=== PATIENT | female | born 1945 | race Caucasian/White ===

== ENCOUNTER 2023-12-22 16:23 | Emergency (ER) | payer MEDICARE, SELFPAY ==
[2023-12-22 16:24] VITALS: BP 147/52; PULSE 60; RESP 16; TEMP 36.9; O2SAT 98; BMI 27.4
--- NOTE | 2023-12-22 16:31 | ED_ITS ---
HPI - Weakness 2 General: Chief complaint: Weakness Stated complaint: Low blood sugar Time Seen by Provider: 12/22/23 16:26 Source: patient and EMS Mode of arrival: EMS Limitations: no limitations History of Present Illness: 78-year-old female states she has a hist ory of diabetes states she is having some generalized weakness roughly 2 hours ago checked her blood sugar and it was 56 states she had eaten some and is now up in the 160s but she called the ambulance because she is concerned she is not on any oral antihyperglycemic's denies any pain anywhere denies any fever she does feel improved currently Associated symptoms: Denies chest pain, chills, dysuria, fever(s), headache(s), nausea or vomiting Review of Systems 2 Const: Reports: fatigue and malaise; Denies: fever(s), chills, body aches or change in appetite ENMT: Denies: throat pain or dental pain Card: Denies: chest pain Resp: Denies: dyspnea GI: Denies: abdominal pain, nausea, vomiting or diarrhea : Denies: dysuria Musc: Denies: neck pain or back pain Skin/Breast: Denies: rash Neuro: Denies: headache(s) Physical Exam 2 Const: COMMON NORMALS: no acute distress, patient oriented x3 and healthy appearing HENMT: COMMON NORMALS: normocephalic and atraumatic HEAD & SCALP: n ormocephalic and atraumatic Eye: COMMON NORMALS: conjunctivae normal CONJUNCTIVA: Yes conjunctivae normal Neck/C-Spine: COMMON NORMALS: full ROM and supple Chest: COMMONS NORMALS: normal inspection of the chest Resp: COMMON NORMALS: normal respiratory effort, No retractions, No use of accessory muscles and clear to auscultation bilaterally AUSCULTATION: clear to auscultation bilaterally Cardio: COMMON NORMALS: regular rate, regular rhythm and No murmurs present (Cardio) RATE: regular rate RHYTHM: regular rhythm Extremity: COMMON NORMALS: normal to inspection and full ROM Neuro: COMMON NORMALS: patient oriented x3, moves all extremities and no focal motor deficits Psych: COMMON NORMALS: mental status grossly normal, Normal thought process present and cooperative THOUGHT PROCESS: Normal thought process present Skin: COMMON NORMALS: no rashes or lesions noted and no wounds GENERAL SKIN EXAM: no rashes or lesions noted Course 2 Vital Signs: Vital signs: Vital Signs Temperature 98.5 F 12/22/23 16:24 Pulse Rate 60 12/22/23 16:24 Respiratory Rate 16 12/22/23 16:24 Blood Pressure 147/52 12/22/23 16:24 Pulse Oximetry 98 12/22/23 16:24 Oxygen Delivery Me thod Room Air 12/22/23 16:24 MDM - Weakness Medical Decision Making Patient presents with hyperglycemia her blood sugar here has been normal did observe her 2 hours her glucose currently is 161 she is not on any oral glipizide's she is stable for discharge follow-up with PCP return if worsening Medical Records I reviewed the patient's medical records. Lab Data I reviewed the patient's lab results. 12/22/23 16:39 12/22/23 16:39 Laboratory Results WBC 7.81 10^3/uL (3.29-11.43) 12/22/23 16:39 RBC 3.79 10^6/uL (3.85-5.65) L 12/22/23 16:39 Hgb 10.50 g/dL (11.27-16.99) L 12/22/23 16:39 Hct 34.1 % (36-47) L 12/22/23 16:39 MCV 90.0 fl (85-98) 12/22/23 16:39 MCH 27.7 pg (27-33) 12/22/23 16:39 MCHC 30.8 g/dL (30-55) 12/22/23 16:39 RDW 14.6 % (12.1-15.1) 12/22/23 16:39 Plt Count 223 10^3/cmm (157-399) 12/22/23 16:39 MPV 9.9 fL (7.4-10.4) 12/22/23 16:39 Neut % (Auto) 57.0 % 12/22/23 16:39 Lymph % (Auto) 31.6 % 12/22/23 16:39 [place] % (Auto) 8.2 % 12/22/23 16:39 Eos % (Auto) 2.0 % 12/22/23 16:39 Baso % (Auto) 0.8 % 12/22/23 16:39 Neut # (Auto) 4.45 10^3/uL (1.8-7.7) 12/22/23 16:39 Lymph # (Auto) 2.5 10^3/uL (0.8-4.8) 12/22/23 16:39 [place] # (Auto) 0.6 10^3/uL (0.2-0.9) 12/22/23 16:39 Eos # (Auto) 0.2 10^3/uL (0.0-0.8) 12/22/23 16:39 Baso # (Auto) 0.1 10^3/uL (0.0-0.1) 12/22/23 16:39 Nucleated RBC % (auto) 0 % 12/22/23 16:39 Nucleated RBCs # 0.0 /100WBC 12/22/23 16:39 Sodium 143 mmol/L (136-145) 12/22/23 16:39 Potassium 4.3 mmol/L (3.5-5.1) 12/22/23 16:39 Chloride 107 mmol/L (98-107) 12/22/23 16:39 Carbon Dioxide 26 mmol/L (22-29) 12/22/23 16:39 Anion Gap 14.3 (5-19) 12/22/23 16:39 BUN 17 mg/dL (8-23) 12/22/23 16:39 Creatinine 0.7 mg/dL (0.5-0.9) 12/22/23 16:39 GFR Calculation Not Reportable 12/22/23 16:39 Glucose 148 mg/dL (65-115) H 12/22/23 16:39 POC Glucose 161 mg/dL (70-110) H 12/22/23 18:31 Calculated Osmolality 300 mOsm/kg (285-295) H 12/22/23 16:39 Calcium 8.4 mg/dL (8.5-10.5) L 12/22/23 16:39 Total Bilirubin 0.2 mg/dL (0.15-1.2) 12/22/23 16:39 AST 15 U/L (0-32) 12/22/23 16:39 ALT 8 U/L (0-33) 12/22/23 16:39 Alkaline Phosphatase 61 U/L (35-105) 12/22/23 16:39 Total Protein 6.5 g/dL (6.6-8.7) L 12/22/23 16:39 Albumin 3.6 g/dL (3.5-5.2) 12/22/23 16:39 Globulin 2.9 g/dL (1.3-4.6) 12/22/23 16:39 Urine Color Yellow (Yellow) 12/22/23 17:31 Urine Appearance Clear (CLEAR) 12/22/23 17:31 Urine pH 5.5 (5-7) 12/22/23 17:31 Ur Specific [place] 1.016 (1.005-1.030) 12/22/23 17:31 Urine Protein Negative (Negative) 12/22/23 17:31 Urine Glucose (UA) Negative (Normal) 12/22/23 17:31 Urine Ketones Negative (Negative) 12/22/23 17:31 Urine Blood Negative (Negative) 12/22/23 17:31 Urine Nitrate Negative (Negative) 12/22/23 17:31 Urine Bilirubin Negative (Negative) 12/22/23 17:31 Urine Urobilinogen 1.0 mg/dL (Negative) 12/22/23 17:31 Ur Leukocyte Esterase Negative (Negative) 12/22/23 17:31 Amorphous Sediment Not Reportable 12/22/23 17:31 No radiology studies performed this visit EKG Data EKG 1: I personally reviewed and interpreted this EKG as follows: EKG interpretation date: 12/22/23 EKG interpretation time: 16:35 Interpretation: sinus jori hr [address] elevation qrs 113 qtc 459 Discharge Plan Discharge Patient Disposition: Home Clinical Impression: Hypoglycemia Condition: Stable Discharge Orders: Discharge ED (Routine); Ordered 12/22/23 Ordered By: Marlee Mendez Referrals: Cal Adam MD [Family Provider] - Discharge Diet: Advance as tolerated Discharge Activity: Resume usual activity Patient Instructions: Hypoglycemia in a Person with Diabetes (ED) Coding Level of Care Code ED Studio Operations Manager for Allison Najera
[2023-12-22 16:37] LABS: Glucose Point of Care 165 mg/dL (70-110)
[2023-12-22 16:57] LABS: Basophils # 0.1 10^3/uL (0.0-0.1); Basophils % 0.8 %; Eosinophils # 0.2 10^3/uL (0.0-0.8); Hematocrit 34.1 % (36-47); Lymphocytes # 2.5 10^3/uL (0.8-4.8); Lymphocytes % 31.6 %; Mean Corpuscular HGB Conc 30.8 g/dL (30-55); Mean Corpuscular Hemoglobin 27.7 pg (27-33); Mean Platelet Volume 9.9 fL (7.4-10.4); Monocytes # 0.6 10^3/uL (0.2-0.9); Monocytes % 8.2 %; Neutrophils # 4.45 10^3/uL (1.8-7.7); Nucleated Red Blood Cells % 0 %; Platelet Count 223 10^3/cmm (157-399); Red Blood Count 3.79 10^6/uL (3.85-5.65); Red Cell Distribution Width 14.6 % (12.1-15.1); White Blood Count 7.81 10^3/uL (3.29-11.43)
[2023-12-22 17:15] LABS: Alanine Aminotransferase 8 U/L (0-33); Albumin Level 3.6 g/dL (3.5-5.2); Alkaline Phosphatase 61 U/L (35-105); Anion Gap 14.3 (5-19); Aspartate Amino Transferase 15 U/L (0-32); Blood Urea Nitrogen 17 mg/dL (8-23); Calcium 8.4 mg/dL (8.5-10.5); Carbon Dioxide 26 mmol/L (22-29); Chloride 107 mmol/L (98-107); Creatinine Clr Calc Pharmacy 58.4139; Globulin 2.9 g/dL (1.3-4.6); Glucose 148 mg/dL (65-115); Osmolality Calculated 300 mOsm/kg (285-295); Potassium 4.3 mmol/L (3.5-5.1); Sodium 143 mmol/L (136-145); Total Bilirubin 0.2 mg/dL (0.15-1.2); Total Protein 6.5 g/dL (6.6-8.7)
[2023-12-22 17:39] LABS: Glucose Point of Care 115 mg/dL (70-110)
--- NOTE | 2023-12-22 17:44 | ECG_ITS ---
[facility] Test Date: 2023-12-22 Pat Name: Rosalina Craig Department: Room: Gender: Female Wood Floor Layer: : 1945 Requested By: Marlee Mendez Order Number: [id number] Raghav MD: Seven Barkley M.D. Measurements Intervals [place] Rate: 52 P: 74 CT: 148 QRS: 93 QRSD: 113 T: 83 QT: 480 QTc: 447 Interpretive Statements SINUS BRADYCARDIA BORDERLINE RIGHT AXIS DEVIATION [QRS AXIS > 90] INCOMPLETE RIGHT BUNDLE BRANCH BLOCK [90+ ms QRS DURATION, TERMINAL R IN V1/V2, 40+ ms S IN I/aVL/V4/V5/V6] No previous ECG available for comparison Electronically Signed On 12-23-2023 9:06:53 CDT by Seven Barkley M.D. [id number] f
[2023-12-22 17:45] LABS: Charge for UA Resulting for Rev
[2023-12-22 18:01] LABS: Bilirubin Urine Negative (Negative); Blood Urine Negative (Negative); Glucose Urine UA Negative (Normal); Ketones Urine Negative (Negative); Leukocyte Esterase Urine Negative (Negative); Nitrate Urine Negative (Negative); Protein Urine Negative (Negative); Specific Gravity, Urine 1.016 (1.005-1.030); Urine Appearance Clear (CLEAR); Urine Color Yellow (Yellow); pH Urine 5.5 (5-7)
[2023-12-22 18:34] LABS: Glucose Point of Care 161 mg/dL (70-110)
--- NOTE | 2023-12-22 19:25 | PC.NURSE ---
This nurse took over cares from Jennifer MADDEN at 1900.
== END 2023-12-22 19:39 | disposition home or self-care (01) ==
PROVIDERS: Emergency Provider Emergency Medicine; Family Provider Family Medicine
DX: E11.649 Type 2 diabetes mellitus with hypoglycemia without coma (principal); R00.1 Bradycardia, unspecified
CPT/HCPCS: 36415; 36416; 80053; 81003; 81015; 82962; 85025; 93005; 99284

== ENCOUNTER 2024-01-19 17:10 | Emergency (ER) | payer MEDICARE, SELFPAY ==
[2024-01-19 17:11] VITALS: BP 193/80; PULSE 77; RESP 16; TEMP 37; O2SAT 97; BMI 28.3
--- NOTE | 2024-01-19 17:16 | XRR_ITS ---
PROCEDURE INFORMATION: Exam: XR Right Forearm Exam date and time: 01/19/2024 5:19 PM Age: 78 years old Clinical indication: Injury or trauma; Fall; Other: Pain; Additional info: Injury, fall and hit right forearm on door today with pain TECHNIQUE: Imaging protocol: Radiologic exam of the right forearm. Views: 2 views. COMPARISON: No relevant prior studies available. FINDINGS: Bones/joints: No fracture or other significant osseous abnormality. No evidence arthropathy. Soft tissues: Mild dorsal soft tissue swelling. XR/XR forearm RT 2V [id number] IMPRESSION: No acute fracture. Mild dorsal forearm soft tissue swelling.
--- NOTE | 2024-01-19 17:22 | ED_ITS ---
HPI - Wound/Laceration General: Chief Complaint: Wound/Laceration Stated Complaint: Lac RT Arm Time Seen by Provider: 01/19/24 17:11 Source: patient Mode of arrival: ambulatory Limitations: no limitations History of Present Illness: 78-year-old female states that she had a right forearm on the refrigerator door today. Patient states that she has a skin tear to her right forearm also pain she states she also has not had updated on her tetanus. She rates her pain a 3 out of 10 denies any other injuries. Associated symptoms: Denies chills, fever(s), nausea or vomiting Related Data Allergies Allergy/AdvReac Type Severity Reaction Status Date / Time No Known Allergies Allergy Verified 12/22/23 16:28 Review of Systems Const: Denies: fever(s), chills, body aches or change in appetite ENMT: Denies: throat pain or dental pain Card: Denies: chest pain Resp: Denies: dyspnea GI: Denies: abdominal pain, nausea, vomiting or diarrhea Musc: Reports: extremity pain; Denies: neck pain or back pain Skin/Breast: Denies: rash Neuro: Denies: headache(s) Physical Exam Const: COMMON NORMALS: no acute distress, patient oriented x3 and healthy appearing HENMT: COMMON NORMALS: normocephalic and atraumatic HEAD & SCALP: normocephalic and atraumatic Neck/C-Spine: COMMON NORMALS: full ROM and supple Chest: COMMONS NORMALS: normal inspection of the chest Resp: COMMON NORMALS: normal respiratory effort Cardio: COMMON NORMALS: regular rate RATE: regular rate GI: COMMON NORMALS: non-tender Extremity: COMMON NORMALS: full ROM NARRATIVE EXTREMITY EXAM: Skin tear noted to right forearm no large lacerations Neuro: COMMON NORMALS: patient oriented x3, moves all extremities and no focal motor deficits Psych: COMMON NORMALS: mental status grossly normal, Normal thought process present and cooperative THOUGHT PROCESS: Normal thought process present Skin: COMMON NORMALS: no rashes or lesions noted and no wounds GENERAL SKIN EXAM: no rashes or lesions noted Course Vital Signs: Vital signs: Vital Signs Temperature 98.6 F 01/19/24 17:11 Pulse Rate 77 01/19/24 17:11 Respiratory Rate 16 01/19/24 17:11 Blood Pressure 193/80 01/19/24 17:11 Pulse Oximetry 97 01/19/24 17:11 Oxygen Delivery Me thod Room Air 01/19/24 17:11 MDM - Wound/Laceration Medical Decision Making Patient presents here with skin tear to right arm x-ray showed no fracture she has no wounds to suture did update her tetanus she is stable for discharge Medical Records I reviewed the patient's medical records. XR interpretation done by ED provider, pending radiology final review ED provider radiology interpretation(s): . X-ray right forearm no acute abnormalities Discharge Plan Discharge Patient Disposition: Home Clinical Impression: Skin tear of right upper extremity Condition: Stable Discharge Orders: Discharge ED (Routine); Ordered 01/19/24 Ordered By: Marlee Mendez Referrals: Cal Adam MD [Family Provider] - Discharge Diet: Advance as tolerated Discharge Activity: Resume usual activity Patient Instructions: Skin Tear (ED) Coding Level of Care Code ED Balloon Dipper for Allison Najera
[2024-01-19] MEDS: tetanus-dipt-pertussis 0.5 mL SDV IM (17:48)
== END 2024-01-19 18:09 | disposition home or self-care (01) ==
PROVIDERS: Emergency Provider Emergency Medicine; Family Provider Family Medicine; PCP Internal Medicine
DX: S51.811A Laceration without foreign body of right forearm, initial encounter (principal); W22.8XXA Striking against or struck by other objects, initial encounter; Z23 Encounter for immunization
CPT/HCPCS: 73090; 90471; 90715; 99283

== ENCOUNTER 2024-12-16 18:19 | Observation (INO) | payer MEDICARE, SELFPAY ==
--- OUTSIDE RECORDS SUMMARY | 2022-01-01 06:30 | XMS_ITS | Continuity of Care Document ---
Author Organization [facility] Address [address] [place] [address] [place] [phone] Phone Care Team Providers Care Asset Analyst Name Role Phone Bee David MCNEIL Unavailable Unavailable Allergies, Adverse Reactions, Alerts Substance Reaction Status Criticality No Known Allergies Active No Inform ation Medications Medication Instructions Dosage Effective Dates (start - stop) Status Comments celecoxib 200 mg capsule TAKE ONE CAPSULE BY MOUTH ONCE DAILY WITH FOOD FOR PAIN AND INFLAMMATION - Active trazodone 150 mg tablet TAKE 2 TABLETS ( 300MG) BY MOUTH AT BEDTIME FOR SLEEP - Active potassium chloride ER 10 mEq tablet,extended release TAKE ONE TABLET BY MOUTH ONCE DAILY NEEDED - Active Januvia 100 mg tablet taking as directed - Active Tresiba FlexTouch U-200 insulin 200 unit/mL (3 mL) subcutaneous pen INJECT 76 UNITS ONCE DAILY SUBCUTANEOUSLY FOR BLOOD SUGAR - Active meclizine 25 mg tablet TAKE ONE TABLET B Y MOUTH THREE TIMES A DAY NEEDED FOR DIZZINESS - Active fluorometholone 0.1 % eye drops,suspension taking as directed - Active gabapentin 800 mg tablet TAKE 2 TABLETS BY MOUTH EVERY MORNING, ONE TABLET BY MOUTH AT NOON, AND 2 TABLETS BY MOUTH EVERY EVENING, FOR NERVE PAIN. MAY CAUSE DROWSINESS. - Active Trintellix 20 mg tablet taking as directed 2021 - Active donepezil 10 mg tablet taking as directed - Active isosorbide mononitrate ER 30 mg tablet,extended release 24 hr taking as directed - Active cyclobenzaprine 5 mg tablet taking as directed - Active tramadol 50 mg tablet TAKE ONE TABLET BY MOUTH EVERY 6 HOURS NEEDED FOR PAIN. MAY CAUSE DROWSINESS. - Active furosemide 40 mg tablet TAKE ONE TABLET BY MOUTH ONCE DAILY . - Active enalapril maleate 5 mg tablet taking as directed - Active Combivent Respimat 20 mcg-100 mcg/actuation solution for inhalation taking as directed - Active triamcinolone acetonide 0.5 % topical ointment taking as directed - Active hydrocodone 7.5 mg-acetaminophen 325 mg tablet TAKE ONE TABLET BY MOUTH EVERY 6 HOURS NEEDED FOR PAIN. TAKE WITH FOOD. MAY CAUSE DROWSINESS. - Active atorvastatin 40 mg tablet TAKE ONE TABLET BY MOUTH ONCE DAILY FOR CHOLESTEROL - Active estradiol 1 mg tablet TAKE ONE TABLET BY MOUTH ONCE DAILY FOR HORMONES - Active Myrbetriq 25 mg tablet,extended release taking as directed - Active spironolactone 25 mg tablet taking as directed - Active cyclobenzaprine 10 mg tablet TAKE ONE TABLET BY MOUTH EACH NIGHT AT BEDTIME - Active etodolac 400 mg tablet taking as directed - Active Prolate 5 mg-300 mg tablet taking as directed - Active promethazine 25 mg tablet TAKE 1 TABLET EVERY 6 HOURS NEEDED FOR NAUSEA. MAY CAUSE DROWSINESS. - Active hydrocodone 10 mg-acetaminophen 325 mg tablet TAKE ONE TABLET BY MOUTH EVERY 4 HOURS NEEDED FOR PAIN. MAY CAUSE DROWSINESS. - Active ondansetron HCl 8 mg tablet TAKE ONE TABLET BY MOUTH EVERY 8 HOURS NEEDED FOR NAUSEA - Active hydrocodone 5 mg-acetaminophen 325 mg tablet TAKE 1 TABLET BY MOUTH EVERY 8-10 HOURS - Active Nalocet 2.5 mg-300 mg tablet taking as directed - Active trazodone 50 mg tablet TAKE 2 TABLETS AT BEDTIME - Active Procedures Procedure Date OFFICE/OUTPATIENT VISIT, NEW AFTER CATARACT LASER SURGERY Advance Directives Directive Yes / No Effective Date File Name No Information Encounters Encounter Description Practice Location Reason(s) For Visit Diagnoses Date Provider Providers Copied on Encounter OFFICE/OUTPAT IENT VISIT, NEW [facility], [address] [place] [address], [id number], tel: [phone] [facility] CLERICAL RECEPTIONIST YAG Eval (chief complaint) PCO (posterior capsular opacification), leftPseudophakia of both eyesMeibomian gland dysfunction (MGD) of both eyesHistory of radial keratotomy 2 Ranjana Hernandez. [address] [place] [address], [place], [address], [place]. tel: [phone] Referring Provider: Guru Juarez, [address], [place], [address] . tel:[phone] [facility], [address] [place] [address] [place] [address], [id number], tel: [phone] [facility] No Information 2 Ranjana Hernandez. [address] [place] [address], [place], [address], [place]. tel: [phone] Referring Provider: Guru Juarez, [address], [place], [address] . tel:[phone] Family History Family Member Type Diagnosis Age At Onset No Information Payers Payer name Insurance type Covered constitution party ID Authoriza tion(s) Medicare Part B [facility] [id number] Medicaid [facility] [id number] Social History Type Description Quantity Date Captured Comments Alcohol Use Details No Caffeine Use Details Unknown Tobacco Use Status Current non-smoker Smoking Status Never smoker Non-Smoking Tobacco Use Details : No Details Available : No Details Available Sex Female Chief Complaint And Reason For Visit From encounter dated '01/01/2022 11:30'. CLERICAL RECEPTIONIST YAG Eval (chief complaint). Description: Pt was referred by Dr. Lama. Pt c/o decrease in Va andglare. Last BG 126Last A1C ? Reason For Referral Reason For Referral No Information History Of Present Illness Encounter Date Complaint History Of Prese nt Illness CLERICAL RECEPTIONIST YAG Eval Pt was referred by Dr. Lama. Pt c/o decrease in Va and glare. Last BG 126Last A1C ? Functional Status Date Functional Assessmen t No Information Instructions Date Instruction Additional Infor mation Follow up as sched w/Dr. Lama R elated to PCO (posterior capsular opacification), left Impression/Plan - 1. Recom warm compresses, lightly massage and scrub lids Related to Meibomian gland dysfunction (MGD) of both eyes Follow up - Follow u p as sched w/Dr. Lama Related to PCO (posterior capsular opacification), left Impression/Plan - 1. VISUALLY SIGNIFICANT. RISKS, BENEFITS, ALTERNATIVES DISCUSSED WITH PATIENT. PT WISHES TO PROCEED W/YAG LASER OS today in clinic. Related to PCO (posterior capsular opacification), left Impression/Plan - 1. 8 cut RK Re lated to History of radial keratotomy Assessments Type Assessment Date assessment PCO (posterior capsular opacific ation), left assessment Pseudophakia of both eyes assessment Meibomian gland dysfunction (MGD ) of both eyes assessment History of radial keratotomy Dec impression Meibomian gland dysfunction (MGD ) of both eyes: H02.883 impression PCO (posterior capsular opacific ation), left: H26.492 impression History of radial keratotomy: Z9 8.890 Patient Care Teams Name Effective Dates (start - stop) Status Members No Information
--- OUTSIDE RECORDS SUMMARY | 2022-01-01 06:30 | XMS_ITS | Continuity of Care Document ---
Author Organization [facility] Address [address] [place] [address] [place] [phone] Phone Care Team Providers Care Chemical Packager Name Role Phone Bee David MCNEIL Unavailable [...] Copied on Encounter OFFICE/OUTPAT IENT VISIT, NEW [facility], [address] [place] [address], [id number], tel: [phone] [facility] PASTRY COOK YAG Eval (chief complaint) PCO (posterior capsular opacification), leftPseudophakia of both eyesMeibomian gland dysfunction (MGD) of both eyesHistory of radial keratotomy 2 Ranjana Hernandez. [address] [place] [address], [place], [address], [place]. tel: [phone] Referring Provider: Guru Juarez, [address], [place], [address] . tel:[phone] [facility], [address] [place] [address] [place] [address], [id number], tel: [phone] [facility] No Information 2 Ranjana Hernandez. [address] [place] [address], [place], [address], [place]. tel: [phone] Referring Provider: Guru Juarez, [address], [place], [address] . tel:[phone] Family History Family Member Type Diagnosis Age At Onset No Information Payers Payer name Insurance type Covered libertarian ID Authoriza tion(s) Medicare Part B [facility] [id number] Medicaid [facility] [id number] Social History Type Description Quantity Date Captured Comments Alcohol Use Details No Caffeine Use Details Unknown Tobacco Use Status Current non-smoker Smoking Status Never smoker Non-Smoking Tobacco Use Details : No Details Available : No Details Available Sex Female Chief Complaint And Reason For Visit From encounter dated '01/01/2022 11:30'. PASTRY COOK YAG Eval (chief complaint). Description: Pt was referred by Dr. Lama. Pt c/o decrease in Va andglare. Last BG 126Last A1C ? Reason For Referral Reason For Referral No Information History Of Present Illness Encounter Date Complaint History Of Prese nt Illness PASTRY COOK YAG Eval Pt was referred by Dr. [...]
--- OUTSIDE RECORDS SUMMARY | 2024-12-05 03:39 | XMS_ITS ---
Author Organization [facility] Address [address] [place] [address] Care Team Providers Care Mathematician Research Name Role Phone Jase Ward Primary Care Provider REASON FOR VISIT tooth pain-antibiotics Encounters Encounter Location Date Provider Diagnosis [facility] [address] [facility] [address] [place] [address] 12/05/2024 Jase Ward Plan Of Treatment Next Appt Details Provider Name:Jase Ward, 01/03/2025 01:00:00 PM, [address] [facility] [address], [place], [address], Progress Notes * Rosalina CRAIG ADOB: 8 (79 yo F)Acc No.[id number]:12/05/2024 Progress Notes Patient: Rosalina Sheriff Provider: Shruthi Ward MD :1945 A ge:79 Y S ex:Female Date:12/05/2024 [address], [place], [id number] Subjective: * Chief Complaints: * T ooth pain-antibiotics Care Plan Details* * Electronic signature of Sharmila Ward MD on 12/17/2024 at 08:00 AM CDT Sign off status: Pending * Provider: Shruthi Ward MD Date: 12/05/2024 Generated for Eduardo rivas/Kimo/eTransmitting on: 0 12/17/2024 08:00 AM CDT
--- OUTSIDE RECORDS SUMMARY | 2024-12-05 03:39 | XMS_ITS ---
Author Organization [facility] Address [address] [place] [address] Care Team Providers Care It Senior Software Engineer Java Name Role Phone Jase Ward Primary Care Provider REASON FOR VISIT tooth pain-antibiotics Encounters Encounter Location Date Provider Diagnosis [facility] [address] [facility] [address] [place] [address] 12/05/2024 Jase Ward Plan Of Treatment Next Appt Details Provider Name:Jase Ward, 01/03/2025 01:00:00 PM, [address] [facility] [address], [place], [address], Progress Notes * Rosalina CRAIG ADOB: 8 (79 yo F)Acc No.[id number]:12/05/2024 Progress Notes Patient: Rosalina Sheriff Provider: Shruthi Ward MD :1945 A ge:79 Y S ex:Female Date:12/05/2024 Address:[address], [place], [id number] Subjective: * Chief Complaints: * T ooth pain-antibiotics Care Plan Details* * Electronic signature of Sharmila Ward MD on 12/16/2024 at 06:34 PM CDT Sign off status: Pending * Provider: Shruthi Ward MD Date: 12/05/2024 Generated for Eduardo rivas/Faxing/eTransmitting on: 0 12/16/2024 06:34 PM CDT
--- OUTSIDE RECORDS SUMMARY | 2024-12-05 09:00 | XMS_ITS ---
Author Organization [facility] Address [address] [facility] [place] [address] Care Team Providers Care Business Development Associate Name Role Phone Jase Ward Primary Care Provider REASON FOR VISIT Tooth Pain- antibiotics Encounters Encounter Location Date Provider Diagnosis [facility] [address] [facility] [address] [place] [address] 12/05/2024 Jase Ward Plan Of Treatment Next Appt Details Provider Name:Jase Ward, 01/03/2025 01:00:00 PM, [address] [facility] [address], [place], [address], Progress Notes * Rosalina CRAIG ADOB: 8 (79 yo F)Acc No.[id number]:12/05/2024 Progress Notes Patient: Rosalina Sheriff Provider: Shruthi Ward MD :1945 A ge:79 Y S ex:Female Date:12/05/2024 Address:[address], [place], [id number] Subjective: * Chief Complaints: * T ooth Pain- antibiotics Billing Information: * Procedure Codes: Care Plan Details* * Electronic signature of Sharmila Ward MD on 12/16/2024 at 06:35 PM CDT Sign off status: Pending * Provider: Shruthi Ward MD Date: 0 12/05/2024 Generated for Eduardo rivas/Kimo/Bisi on: 0 12/16/2024 06:35 PM CDT
--- OUTSIDE RECORDS SUMMARY | 2024-12-05 09:00 | XMS_ITS ---
Author Organization [facility] Address [address] [place] [address] Care Team Providers Care Letter Carrier Name Role Phone Jase Ward Primary Care Provider [phone] REASON FOR VISIT Tooth Pain- antibiotics Encounters Encounter Location Date Provider Diagnosis [facility] [address] [facility] [address] [place] [address] 12/05/2024 Jase Ward Plan Of Treatment Next Appt Details Provider Name:Jase Wrad, 01/03/2025 01:00:00 PM, [address] [facility] [address], [place], [address], Progress Notes * Rosalina CRAIG ADOB: 8 (79 yo F)Acc No.[id number]:12/05/2024 Progress Notes Patient: Rosalina Sheriff Provider: Shruthi Ward MD :1945 A ge:79 Y S ex:Female Date:12/05/2024 Address:[address], [place], [id number] Subjective: * Chief Complaints: * T ooth Pain- antibiotics Billing Information: * Procedure Codes: Care Plan Details* * Electronic signature of Sharmila Ward MD on 12/17/2024 at 08:01 AM CDT Sign off status: Pending * Provider: Shruthi Ward MD Date: 0 12/05/2024 Generated for Eduardo rivas/Kimo/Bisi on: 0 12/17/2024 08:01 AM CDT
[2024-12-16] VITALS (9 sets, daily range): BP systolic 104–136; BP diastolic 38–68; PULSE 56–68; RESP 12–18; TEMP 36.5–36.7; O2SAT 90–99; BMI 26.9
--- NOTE | 2024-12-16 18:34 | XRR_ITS ---
PROCEDURE INFORMATION: Exam: XR Chest Exam date and time: 12/16/2024 6:42 PM Age: 79 years old Clinical indication: Pain; Chest pressure; Prior surgery; Surgery date: 6+ months; Surgery type: Cabg; Additional info: Cp TECHNIQUE: Imaging protocol: Radiologic exam of the chest. Views: 1 view. COMPARISON: No relevant prior studies available. FINDINGS: Lungs: Unremarkable. No consolidation. Pleural spaces: Unremarkable. No pleural effusion. No pneumothorax. Heart/Mediastinum: Mild cardiomegaly. Bones/joints: Changes of prior sternotomy. Left shoulder arthroplasty. XR/XR chest 1V portable [id number] IMPRESSION: No acute cardiopulmonary findings.
--- OUTSIDE RECORDS SUMMARY | 2024-12-16 18:35 | XMS_ITS | Patient Health Record ---
Author Organization [facility] Address [address] [place] [address] Care Team Providers Care Checkman Name Role Phone Jase Ward Primary Care Provider Migration, Provider Unavailable Unavailable Allergies Allergen (clinical drug ingredient) Drug/Non Drug Allergy documented on EMR Reaction Allergy Type Onset Date Status codeine Codeine HCl (uncoded) Unknown Allergy Active meperidine demerol Unknown Drug Allergy Active codeine Codeine , Drug Allergy Active Results Component Value Reference Range Flag Notes Vitamin B12 (B) 69870 Reviewed date:08/03/2024 09:35:33 AM Interpretation: Performing Lab: Notes/Report: TbfpatcU19 438 211-911 pg/mL Knee Min 3V Right-83105 Reviewed date:01/31/2024 06:11:54 AM Interpretation: Performing Lab: Notes/Report: See Below For Report Knee Min 3V Right Read See Below For Report Knee Min 3V Left-77506 Reviewed date:01/31/2024 06:11:54 AM Interpretation: Performing Lab: Notes/Report: See Below For Report Knee Min 3V Left Read See Below For Report Hip 2-3 View Uni Left w/ Pel vis-[id number] Reviewed date:01/31/2024 06:11:54 AM Interpretation: Performing Lab: Notes/Report: See Below For Report Hip 2-3 View Uni Left w/ Pelvis Read See Below For Report Microalbumin (U) Random 8204 3 Reviewed date:12/11/2024 02:19:19 PM Interpretation: Performing Lab: Notes/Report: Diagnosis Description: Other specified depressive disorder Ur Microalbumin <3.0 .0-30.0 MG/L Ur Creat 115.6 29.0-226.0 Mal/Crea/Ratio <2.6 .0-30.0 mg Alb/g Cr Thyroid Stimulating Hormone (TSH) 10351 Reviewed date:08/03/2024 09:35:54 AM Interpretation: Performing Lab: Notes/Report: Diagnosis Description: Type 2 diabetes mellitus with other circulatory complications TSH .660 .358-3.740 MlU/ML Hemoglobin A1c 60164 Reviewed date:08/03/2024 09:35:50 AM Interpretation: Performing Lab: Notes/Report: Diagnosis Description: Type 2 diabetes mellitus with other circulatory complications Hgb A1c 8.6 3.8-6.4 % HI Interpretation Of Hgb A1c: 4.5-6.2 % nondiabetics. >7.0 % diabetics. EAG 200 NA Estimated Aver age Glucose(EAG). Comprehensive Metabolic Pane l (CMP) 49151 Reviewed date:08/03/2024 09:36:23 AM Interpretation: Performing Lab: Notes/Report: Diagnosis Description: Type 2 diabetes mellitus with other circulatory complications Glucose Serum 145 71-110 MG/DL HI Testing p erformed at [facility], [address] [place] [address] [place] [address]. CLIA ID#: [id number] BUN 15 7-21 MG/DL Creat .64 .51-1.17 MG/DL Q-keganh-q-benzoquinon e imine (NAPQI) is a metabolite of acetaminophen, NAPQI concentrations of apparoximately 10 mg/L correlation to toxic levels of acetaminophen demonstrates a greater than or equil to 10% change in results. NAPQI concentrations greater than this may lead to falsely depressed results for patient samples. Use of this assay is not recommended for patients undergoing treatment with phenindione, due to the potential for falsely depressed results. GFR 91.1 NA Calculation pe rformed from GFR calculator provided by the [employer]. Glomerular Filtration rate(GRF) is the best overall index of kidney function. Normal GFR varies according to age,sex, body size, and declines with age. The National [employer] recommends using the CKD-EPI Creatinine Equation(2020) to estimate GFR. BUN/Creat Ratio 23.4 12.0-20.0 % HI Total Protein 6.9 5.8-8.0 G/DL Albumin 4.2 3.2-4.8 G/DL Globulin 2.7 2.3-3.5 G/DL Alb/Glob 1.6 0.8-2.2 Calcium 9.0 8.7-10.4 MG/DL Sodium 140 136-145 MMOL/L Potassium 4.3 3.5-5.1 MMOL/L Chloride 96 98-107 MMOL/L LOW CO2 33.7 20.0-31.0 MMOL/L HI Anion Gap 15 5-15 Alk Phos 60 46-116 Bili Total .5 .3-1.2 MG/DL Use of this assay is not recommended for patients undergoing treatment with eltrombopag due to the potential for falsely elevated results. AST/SGOT 26 15-37 UNIT/L ALT/SGPT 18 12-78 UNIT/L Osmo Serum,Calculated 293 280-300 MOSM/KG CBC w\ Auto Diff 58327 Reviewed date:08/03/2024 09:36:11 AM Interpretation: Performing Lab: Notes/Report: Diagnosis Description: Type 2 diabetes mellitus with other circulatory complications WBC 12.4 4.5-11.0 X10'3 HI RBC 4.38 4.00-5.20 X10'6 Hgb 11.9 12.0-16.0 G/DL LOW Hct 38.6 36.0-46.0 % MCV 88.1 80.0-100.0 FL MCH 27.2 27.0-31.0 PG MCHC 30.8 31.0-37.0 G/DL LOW Platelet 246 150-400 X10'3 RDW-SD 46.4 35.0-49.0 FL RDW-CV 14.3 12.2-15.6 % MPV 10.4 9.2-12.0 FL Neutro Auto% 76.4 40.0-70.0 % HI Lymph Auto% 16.7 22.0-44.0 % LOW [place]ry Auto% 5.4 3.0-7.0 % Eos Auto% .6 2.0-4.0 % LOW Baso Auto% 0.4 0.0-1.0 % Imm Gran% .5 .0-.4 % HI Neutro Abs 9.45 .80-7.70 HI Absolute Neutrophil Count 9450 NA Lymph Abs 2.07 .10-4.10 [place]ry Abs .67 .20-1.00 Eos Abs .07 .00-.40 Baso Abs .05 .00-.20 Imm Gran Abs .06 .00-.10 NRBC# .00 .00-.20 X10'3 NRBC% .00 .00-.20 /100 intact WBC's Self-COVID 19 PCR Reviewed date:06/27/2024 03:12:44 PM Interpretation: Performing Lab: Notes/Report: COVID 19 PCR Negative Reason For Referral Reason Evaluation of care Diagnosis 1 Cervical post-lamar ctomy syndrome (M96.1) Referral Organization [facility] Referring Provider First Name Roberto ware Referring Provider Last Name Ed Referring Provider Speciality Internal M edicine [facility] Special[facility] General Notes Ines Lewis 04:55:58 PM >faxed [employer] [facility] - call [facility] to get ahold of pt between -2, Marta Avalos 03/30/2024 01:17:18 PM >PER ALIYAH, THEY WENT TO VISIT HER TODAY AND SHE REFUSED THE SERVICES Referral Priority Routine Reason she feels like somet ginny is wrong with her right breast implant Diagnosis 1 Malposition of breas t implant, 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) Referral Organization [facility] Referring Provider First Name Roberto ware Referring Provider Last Name Ed Referring Provider Speciality Internal M edicine Referred Provider German Phillips Referred Provider Specialty Plastic and Reconstructive Surgery General Notes Ines Lewis 04:09:50 PM >faxed Robbie Carlisle Heidi 07/04/2024 11:30:54 AM >UNABLE TO REACH PT SINCE SHE DOES NOT HAVE PHONE Referral Priority Routine Reason history of shoulder replacement Diagnosis 1 Pain, joint, shoulde r, left (M25.512) Referring Provider First Name Roberto ware Referring Provider Last Name Ed Referring Provider Speciality Internal M edicine Referred Organization [facility] Referred Provider Lisa Ortez Referred Address [address] [place] [address],[place],[phone], Referral Priority Routine Reason history of shoulder replacement Diagnosis 1 Pain, joint, shoulde r, left (M25.512) Referral Organization [facility] Referring Provider First Name Roberto ware Referring Provider Last Name Ward Referring Provider Speciality Internal M edicine Referred Provider LISA ORTEZ Referred Provider Specialty Orthopedic S urgery General Notes Ines Lewis 12:31:29 PM >faxed Robbie Phillips Heidi 10/10/2024 03:53:22 PM >NOT ABLE TO GET OLD RECORDS FROM PREVIOUS SHOULDER REPLACEMENT Referral Priority Routine Reason Eval and Treat Diagnosis 1 Cardiomegaly (I51.7) Referral Organization [facility] Referring Provider First Name Roberto ware Referring Provider Last Name Ward Referring Provider Speciality Internal M edicine Referred Provider [facility] Shruthi hernandez Referred Provider Specialty Counselor General Notes Ines Lewis 04:27:15 PM >faxed [place] Robbie ROGERS Heidi 10/30/2024 09:30:07 AM >SPOKE TO [facility] AND THEY HAVE BEEN TRYING TO REACH PT BUT THEY CAN NOT ACCEPT HER BECAUSE SHE IS NOT STRAIGHT MEDICARE Referral Priority Routine Medications Medication SIG (Take, Route, Frequency, Duration) Notes Start Date End Date Status Tresiba FlexTouch 200 UNIT/ML Solution Pen-injector as directed Subcutaneous Daily; Duration: 30 days inject 74 units Active Metoprolol Succinate ER 50 mg Tablet Extended Release 24 Hour TAKE 1/2 TABLET BY MOUTH DAILY; Duration: 60 Active Lisinopril 10 MG Oral Tablet Lisinopril 10 MG Oral Tablet 05/25/2011 Unknown traZODone HCl 50 mg Tablet TAKE 1-3 TABLETS BY MOUTH AT BEDTIME NEEDED; Duration: 30 Active Furosemide 40 mg Tablet TAKE ONE TABLET BY MOUTH DAILY; Duration: 30 Active Losartan Potassium 100 mg Tablet TAKE ONE TABLET BY MOUTH ONCE DAILY; Duration: 30 Active Albuterol 0.833 MG/ML / Ipratropium [place] 0.167 MG/ML Inhalant Solution Albuterol 0.833 MG/ML / Ipratropium [place] 0.167 MG/ML Inhalant Solution 05/25/2011 Unknown ARIPiprazole 5 mg Tablet TAKE 1 TABLET BY MOUTH ONCE a day; Duration: 30 Active Fluticasone Propionate 50 MCG/ACT Suspension instill one SPRAY IN EACH NOSTRIL ONCE DAILY; Duration: 30 Not-Taking Aspirin 325 MG Oral Tablet Aspirin 325 MG Oral Tablet 05/25/2011 Unknown Meclizine HCl 25 mg Tablet TAKE ONE TABLET BY MOUTH EVERY TWELVE HOURS NEEDED; Duration: 30 Not-Taking Metoprolol Tartrate 50 MG Oral Tablet Metoprolol Tartrate 50 MG Oral Tablet 05/25/2011 Unknown Trintellix 20 mg Tablet 1 PO QD; Duration: 90 days Active OneTouch Verio - Strip DIRECTED IN VITRO DAILY; Duration: 30 Active Ondansetron 8 MG Tablet Disintegrating 1 tablet on the tongue and allow to dissolve as needed Orally Once a day Active busPIRone HCl 10 MG Tablet 1 tablet Orally Twice a day Unknown FireScopeStyle Ami 3 Plus Sensor - Miscellaneous apply sensor ONCE EVERY 15 days as directed; Duration: 30 Active Diphenoxylate-Atropi ne 2.5-0.025 MG Tablet 2 tablet as needed Orally DAILY Active Combivent Respimat 20-100 MCG/ACT Aerosol Solution INHALE TWO PUFFS into lungs THREE TIMES DAILY; Duration: 30 Active 24 HR Desvenlafaxine 100 MG Extended Release Tablet [Pristiq] 24 HR Desvenlafaxine 100 MG Extended Release Tablet [Pristiq] 05/25/2011 Unknown Pseudoephedrine HCl ER 120 MG Tablet Extended Release 12 Hour 1 tablet as needed Orally every 12 hrs; Duration: 10 days 05/02/2024 Not-Taking oxyCODONE HCl 10 MG Tablet 1 tablet as needed Orally Twice a day Unknown GanosTouch Delica Plus [id number] - Miscellaneous USE DIRECTED TO TEST BLOOD SUGAR THREE TIMES DAILY; Duration: 33 days Active Flonase 50 MCG/DOSE Inhaler 1 spray in each nostril Nasally Once a day; Duration: 30 days Active Metformin hydrochloride 1000 MG Oral Tablet Metformin hydrochloride 1000 MG Oral Tablet 05/25/2011 Unknown DoubleBeame 2 [place] - Device as directed in vitro use to read sensor daily; Duration: 30 days 11/17/2023 Active 24 HR Trazodone Hydrochloride 150 MG Extended Release Tablet 24 HR Trazodone Hydrochloride 150 MG Extended Release Tablet 05/25/2011 Unknown Dulcolax 5 MG Tablet Delayed Release 1 tablet as needed Orally daily; Duration: 90 days 12/02/19 26 Active Estradiol 1 mg Tablet TAKE ONE TABLET BY MOUTH DAILY; Duration: 30 Active Pregabalin 225 MG Capsule 1 cap Orally BID; Duration: 30 days 10/11/2024 02/09/20 25 Active Myrbetriq 25 mg Tablet Extended Release 24 Hour TAKE ONE TABLET BY MOUTH DAILY; Duration: 30 Active Isosorbide Mononitrate ER 30 mg Tablet Extended Release 24 Hour TAKE ONE TABLET BY MOUTH every 24 hours DIRECTED; Duration: 30 Active fentaNYL 25 MCG/HR Patch 72 Hour 1 patch to skin Transdermal Active Immunizations Vaccine Route Administration Date Status Comme nts Flucelvax Trivalent, Syringe 0.5 mL, PF Unknown 025 Refused Social History Tobacco Use: Social History Observation Description Date Details (start date - stop date) Never Smoker NA - NA Social History Depression Screening Social Info Question Answer Notes depression screening findings Findings Positive (9+ without suicidality) 11/07/24 PHQ-9 Little interest or pleasure in doing things Nearly every day Feeling down, depressed, or hopeless Nearly ever y day Trouble falling or staying a sleep, or sleeping too much Nearly every day Feeling tired or having little energy Nearly tevin ry day Poor appetite or overeating Nearly every day Feeling bad about yourself, or that you are a failure, or have let yourself or your family down Several days Trouble concentrating on thi ngs, such as reading the newspaper or watching television Several days Moving or speaking so slowly that other people could have noticed. Or the opposite ? being so fidgety or restless that you have been moving around a lot more than usual Several days Thoughts that you would be b magy off , or of hurting yourself in some way Not at all Total Score 18 Interpretation Moderately severe depression Drugs/Alcohol: Social Info Question Answer Notes Drugs Have you used drugs other than those for medical reasons in the past 12 months? No Drug/Alcohol: Social Info Question Answer Notes AUDIT-C (Standard) Did you have a drink containing alcohol in the past year? No Points 0 Interpretation Negative Tobacco Use: Social Info Question Answer Notes Tobacco Control (Standard) Tobacco use: Nonsmoker Additional Details Category Social Info Options Details Migrated Social History Migrated Social History Alcoholic beverages? - No, Currently on disability? - No, Marital Status - , Nonprescription drug use? - No, Smoking - No, Working currently? - No zzMigrated Social History Migrated Social History Smoking Status:Tobacco smoking consumption unknown (finding) Section Notes: PHQ9 - 03/21/24 PHQ9 - 03/21/24 PHQ9 - 03/21/24 Tob - 06/27/24 Dep/Tob - 07/26/24 CIME Dep/Tob - 07/26/24 CIME Dep/Tob - 07/26/24 CIME Dep/Tob - 07/26/24 CIME Dep/Tob - 07/26/24 CIME Dep/Tob - 07/26/24 CIME Dep 11/07/24 CIME Dep/Tob - 07/26/24 CIME Dep 11/07/24 PHQ9 - 03/21/24 Problems Problem Type SNOMED Code ICD Code Onset Dates Problem Status W/U Status Risk Notes Problem Peripheral circulatory disorder associated with diabetes mellitus (554985188) Type 2 diabetes mellitus with other circulatory complications (E11.59) Active confirmed Problem Cardiomegaly (4289247) Cardiomegaly (I51.7) Active confirmed Problem Fever (644078631) Fever, unspecified (R50.9) Active confirmed Problem Long-term current use of insulin (551304299) alf (current) use of insulin (Z79.4) Active confirmed Problem Essential hypertension (37765914) Essential hypertension (I10) Active confirmed Problem Diabetic peripheral neuropathy associated with type 2 diabetes mellitus (2721227297111) Painful diabetic neuropathy (E11.40) Active confirmed Problem Shoulder joint pain (449153392) Pain, joint, shoulder, left (M25.512) Active confirmed Problem Depression (698157236) Other depression (F32.89) Active confirmed Problem Lateral epicondylitis (349285366) Lateral epicondylitis of right elbow (M77.11) Active confirmed Problem Trochanteric bursitis of left hip (172142209202487 ) Trochanteric bursitis of left hip (M70.62) Active confirmed Problem Cervical post-laminectomy syndrome (007197231) Cervical post-laminectomy syndrome (M96.1) Active confirmed Problem 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) 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) Active confirmed Problem Malposition of breast implant, 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) Active confirmed Problem Coronary atherosclerosis of [place] coronary a (414.01) 06/24/19 12 Active confirmed [facility] 6773- Vital Signs Heart Rate 51 /min 12/06/2024 Temperature 97.8 degrees Fahrenheit 12/06/2024 Height-cm 162.56 cm 12/06/2024 Blood pressure diastolic 74 mm Hg 12/06/2024 Oximetry 96 % 12/06/2024 Weight-kg 76.2 kg 12/06/2024 Height 64 in 12/06/2024 Blood pressure systolic 125 mm Hg 12/06/2024 Weight 168 lbs 12/06/2024 BMI 28.83 kg/m2 12/06/2024 Procedures Procedure Date Ordered Date Performed Result Body Sit e DRAIN/INJ JOINT/BURSA W/O 01/03/2024 01/04/2024 N/A DRAIN/INJ JOINT/BURSA W/O US 03/21/2024 03/23/2024 N/A Encounters Encounter Location Date Provider Diagnosis [facility] [address] [place] [phone] 12/06/2024 Jase Ward Dental infection K04.7 ; Essential hypertension I10 and Cardiomegaly I51.7 [facility] [address] [address] 11/07/2024 Jase Ward Other depression F32.89 ; Cervical post-laminectomy syndrome M96.1 ; Microalbuminuria R80.9 and Depression screen Z13.31 [facility] [address] [place] [phone] 10/31/2024 Jase Ward Tooth pain K08.89 ; Type 2 diabetes mellitus with other circulatory complications E11.59 ; Essential hypertension I10 and Depression screen Z13.31 [facility] [address] [place] [phone] 10/10/2024 Jase Ward Essential hypertension I10 ; Type 2 diabetes mellitus with other circulatory complications E11.59 ; Cervical post-laminectomy syndrome M96.1 ; Cardiomegaly I51.7 ; Encounter for immunization Z23 and Immunization not carried out because of patient refusal Z28.21 [facility] [address] [place] [phone] 09/11/2024 Jase Ward Type 2 diabetes mellitus with other circulatory complications E11.59 ; Cervical post-laminectomy syndrome M96.1 ; Pain, joint, shoulder, left M25.512 and Depression screen Z13.31 [facility] [address] [place] [phone] 08/21/2024 Jase Ward Essential hypertension I10 ; Type 2 diabetes mellitus with other circulatory complications E11.59 ; Painful diabetic neuropathy E11.40 ; Cervical post-laminectomy syndrome M96.1 ; Depression screen Z13.31 and Other depression F32.89 [facility] [address] [address] 07/26/2024 Jase Ward Essential hypertension I10 ; Type 2 diabetes mellitus with other circulatory complications E11.59 ; Painful diabetic neuropathy E11.40 and Depression screen Z13.31 [facility] [address] [address] 06/27/2024 Jase Ward Fever, unspecified R50.9 ; Malposition of breast implant, initial encounter T85.42XA and Cervical post-laminectomy syndrome M96.1 [facility] [address] [place] [phone] 05/02/2024 Jase Ward Viral URI with cough J06.9 [facility] [address] [address] 04/18/2024 Jase Ward Type 2 diabetes mellitus with other circulatory complications E11.59 ; Essential hypertension I10 ; Cervical post-laminectomy syndrome M96.1 and Depression screen Z13.31 [facility] [address] [address] 02/17/2024 Jase Ward Essential hypertension I10 ; Type 2 diabetes mellitus with other circulatory complications E11.59 ; Cervical post-laminectomy syndrome M96.1 ; Status post fall Z91.81 ; Depression screen Z13.31 and Pain in left shoulder M25.512 [facility] [address] [address] 03/21/2024 Jase Ward Cervical post-laminectomy syndrome M96.1 ; Trochanteric bursitis of left hip M70.62 and Depression screen Z13.31 [facility] [address] [place] [address] 01/03/2024 Jase Ward Trochanteric bursitis of left hip M70.62 and Lateral epicondylitis of right elbow M77.11 [facility] [address] [place] [address] 12/21/2023 Jase Ward Type 2 diabetes mellitus with other circulatory complications E11.59 ; Essential hypertension I10 ; alf (current) use of insulin Z79.4 and Cervical post-laminectomy syndrome M96.1 [facility] [address] [place] [address] 12/27/2023 Jase Ward Bronchial infection J40 [facility] [address] [address] 09/19/2024 Jase Ward [facility] [address] [address] 08/01/2024 Jase Ward Cervical post-laminectomy syndrome M96.1 Migrated_Facility 0 0 03/19/2024 Provider Migration Migrated_Facility 0 0 03/18/2024 Provider Migration [facility] [address] [address] 07/19/2024 Jase Ward Cervical post-laminectomy syndrome M96.1 [facility] [address] [address] 07/14/2024 Jase Ward [facility] [address] [address] 06/26/2024 Jase Ward [facility] [address] [place] [address] 06/22/2024 Jase Ward Cervical post-laminectomy syndrome M96.1 [facility] [address] [address] 06/13/2024 Jase Ward [facility] [address] [address] 05/29/2024 [facility] [address] [place] [address] 05/18/2024 Jase Ward Cervical post-laminectomy syndrome M96.1 [facility] [address] [place] [address] 04/12/2024 Jase Ward [facility] [address] [place] [address] 03/20/2024 Jase Ward [facility] [address] [place] [address] 03/16/2024 Jase Ward [facility] [address] [place] [address] 03/08/2024 Jase Ward Cervical post-laminectomy syndrome M96.1 [facility] [address] [place] [address] 03/08/2024 Jaes Ward [facility] [address] [place] [address] 01/26/2024 Jase Ward Cervical post-laminectomy syndrome M96.1 [facility] [address] [place] [address] 01/13/2024 Jase Ward Cervical post-laminectomy syndrome M96.1 [facility] [address] [place] [address] 12/29/2023 Jase Ward [facility] [address] [place] [address] 12/22/2023 Jase Ward [facility] [address] [place] [address] 12/21/2023 Jase Ward [facility] [address] [place] [address] 12/13/2024 Jase Ward Other depression F32.89 [facility] [address] [place] [address] 11/03/2024 Jase Ward [facility] [address] [place] [address] 10/31/2024 Jase Ward [facility] [address] [place] [phone] 10/11/2024 Jaes Ward Assessments Encounter Date Diagnosis (ICD Code) Assessment Notes Treatment Notes Treatment Clinical Notes Section Notes 03/08/2024 Cervical post-laminectomy syndrome (ICD-10 - M96.1) 12/21/2023 Type 2 diabetes mellitus with other circulatory complications (ICD-10 - E11.59) 12/21/2023 Essential hypertension (ICD-10 - I10) 12/27/2023 Bronchial infection (ICD-10 - J40) 01/03/2024 Lateral epicondylitis of right elbow (ICD-10 - M77.11) 01/03/2024 Trochanteric bursitis of left hip (ICD-10 - M70.62) 01/13/2024 Cervical post-laminectomy syndrome (ICD-10 - M96.1) 01/26/2024 Cervical post-laminectomy syndrome (ICD-10 - M96.1) 02/17/2024 Type 2 diabetes mellitus with other circulatory complications (ICD-10 - E11.59) 02/17/2024 Essential hypertension (ICD-10 - I10) continue current regimen 03/21/2024 Cervical post-laminectomy syndrome (ICD-10 - M96.1) 04/18/2024 Type 2 diabetes mellitus with other circulatory complications (ICD-10 - E11.59) 05/02/2024 Viral URI with cough (ICD-10 - J06.9) She claims not to be allergic to codeine 05/18/2024 Cervical post-laminectomy syndrome (ICD-10 - M96.1) 06/22/2024 Cervical post-laminectomy syndrome (ICD-10 - M96.1) 06/27/2024 Fever, unspecified (ICD-10 - R50.9) 06/27/2024 Malposition of breast implant, initial encounter (ICD-10 - T85.42XA) 07/19/2024 Cervical post-laminectomy syndrome (ICD-10 - M96.1) 08/01/2024 Cervical post-laminectomy syndrome (ICD-10 - M96.1) 08/21/2024 Type 2 diabetes mellitus with other circulatory complications (ICD-10 - E11.59) 08/21/2024 Essential hypertension (ICD-10 - I10) 07/26/2024 Essential hypertension (ICD-10 - I10) 09/11/2024 Cervical post-laminectomy syndrome (ICD-10 - M96.1) 09/11/2024 Type 2 diabetes mellitus with other circulatory complications (ICD-10 - E11.59) 10/10/2024 Essential hypertension (ICD-10 - I10) 10/31/2024 Tooth pain (ICD-10 - K08.89) 11/07/2024 Other depression (ICD-10 - F32.89) 11/07/2024 Cervical post-laminectomy syndrome (ICD-10 - M96.1) 12/06/2024 Essential hypertension (ICD-10 - I10) 12/06/2024 Dental infection (ICD-10 - K04.7) 12/13/2024 Other depression (ICD-10 - F32.89) 09/11/2024 Pain, joint, shoulder, left (ICD-10 - M25.512) 12/06/2024 Cardiomegaly (ICD-10 - I51.7) 11/07/2024 Microalbuminuria (ICD-10 - R80.9) 10/31/2024 Type 2 diabetes mellitus with other circulatory complications (ICD-10 - E11.59) 10/10/2024 Type 2 diabetes mellitus with other circulatory complications (ICD-10 - E11.59) 08/21/2024 Painful diabetic neuropathy (ICD-10 - E11.40) 07/26/2024 Type 2 diabetes mellitus with other circulatory complications (ICD-10 - E11.59) 02/17/2024 Cervical post-laminectomy syndrome (ICD-10 - M96.1) 03/21/2024 Trochanteric bursitis of left hip (ICD-10 - M70.62) 06/27/2024 Cervical post-laminectomy syndrome (ICD-10 - M96.1) 04/18/2024 Essential hypertension (ICD-10 - I10) 12/21/2023 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31) 10/31/2024 Depression screen (ICD-10 - Z13.31) 10/10/2024 Encounter for immunization (ICD-10 - Z23) 07/26/2024 Depression screen (ICD-10 - Z13.31) 08/21/2024 Depression screen (ICD-10 - Z13.31) 02/17/2024 Depression screen (ICD-10 - Z13.31) 04/18/2024 Depression screen (ICD-10 - Z13.31) 02/17/2024 Pain in left shoulder (ICD-10 - M25.512) 08/21/2024 Other depression (ICD-10 - F32.89) refilled Trintellix 10/10/2024 Immunization not carried out because of patient refusal (ICD-10 - Z28.21) 07/26/2024 Other Venipuncture performed by Henrietta Gracia. Right arm/hand. One attempt. Pt tolerated well, bleeding controlled with light dressing. Lab sent to [facility] via pediatric speech therapist. 11/07/2024 Other Dx: Diabetic diagnosis Pt is due for preventive health screenings. We will set up the appropriate screenings for the patient at the facility of choice. Plan Of Treatment Pending Test Test Name Order Date Echo Complete [id number] 10/10/2024 Next Appt Details Provider Name:Jase Ward, 01/03/2025 01:00:00 PM, [address], [place], [address], Insurance Providers Payer Name Payer Address Payer Phone Subscriber Number Group Number Insured Name Patient Relationship to Insured Coverage Start Date Coverage End Date [employer] Medicare Dual Complete PPO [address] [address] [place] [address] [id number] Rosalina Craig Self - patient is the insured Medications Administered Medication Instructions Date of Administration Dosage Notes BUPivacaine HCl 01/03/2024 1 mL BUPivacaine HCl 03/21/2024 1 mL DEPO-Medrol 01/03/2024 80 mg DEPO-Medrol 03/21/2024 80 mg dexAMETHasone 12/27/2023 10 mg dexAMETHasone 02/17/2024 10 mg Ketorolac Tromethamine 02/17/2024 30 mg Rocephin 12/27/2023 1 g Medical (General) History Medical History History ICD Code Problem:Chronic congestive heart failure (disorder) , Status :: Active Problem:Coronary arterioscle rosis in [place] artery (disorder) , Status :: Active Problem:Diabetes mellitus (disorder) , S tatus :: Active Problem:Essential hypertension (disorder ) , Status :: Active Problem:Preinfarction syndrome (disorder ) , Status :: Active Hypoglycemia Covid Surgical History Surgery Date(Month/Year) Quatriple bypass hysterectomy appendectomy cabg Low back surgery Neck surgery
[2024-12-16 19:06] LABS: Hematocrit 37.2 % (36-47); Hemoglobin 11.60 g/dL (11.27-16.99); Mean Corpuscular HGB Conc 31.2 g/dL (30-55); Mean Corpuscular Hemoglobin 27.2 pg (27-33); Mean Corpuscular Volume 87.1 fl (85-98); Nucleated Red Blood Cells % 0 %; Platelet Count 203 10^3/cmm (157-399); Red Blood Count 4.27 10^6/uL (3.85-5.65); White Blood Count 8.08 10^3/uL (3.29-11.43)
[2024-12-16] MEDS: ondansetron 2 mg/ML SDV 2 mL 4 MG IVP (19:10)
[2024-12-16] MEDS: morphine 4 mg/mL SDV 1 mL IVP (19:14)
[2024-12-16] MEDS: nitroglycerin 1 gm/inch oint Pkt 0.5 INCH TOPICAL ×2 (19:14→23:52)
--- NOTE | 2024-12-16 19:15 | W.ED.CHESTPA ---
HPI - Chest Pain General: Chief Complaint: Chest Pain Stated Complaint: chest pain Time Seen by Provider: 12/16/24 18:30 History of Present Illness: 79-year-old female with an extensive cardiac history. She says that she has had a quadruple bypass in the past as well as 16 stents placed in her coronaries. She does not remember when the last time she had a catheterization was. She states that she has had chest pain on and off for the last 2 days, but much worse since this afternoon. It has been associated with shortness of breath, nausea, vomiting, and generalized weakness. She denies fever or cough. She denies epigastric or abdominal pain. She denies foot swelling. Related Data Allergies Allergy/AdvReac Type Severity Reaction Status Date / Time No Known Allergies Allergy Verified 08/17/24 09:06 Physical Exam Const: GENERAL APPEARANCE: cooperative and ill appearing (Mildly); not frail appearing HENMT: COMMON NORMALS: normocephalic, atraumatic and Normal external nose present HEAD & SCALP: normocephalic and atraumatic FACE & SINUS: normal facial exam and face symmetric NOSE: Normal external nose present Eye: COMMON NORMALS: Equal, round and reactive pupils present and EOMs intact bilaterally PUPIL: Yes Equal, round and reactive pupils present Neck/C-Spine: GENERAL: Yes trachea midline Chest: CHEST: Yes Symmetrical chest wall rise Resp: COMMON NORMALS: normal respiratory effort, No retractions, No use of accessory muscles and clear to auscultation bilaterally AUSCULTATION: clear to auscultation bilaterally Cardio: COMMON NORMALS: regular rate and regular rhythm RATE: regular rate RHYTHM: regular rhythm GI: COMMON NORMALS: Normal to inspection, nondistended, normoactive bowel sounds present Extremity: COMMON NORMALS: no pedal edema Neuro: YOSVANY COMA SCALE: document GCS findings [place] coma scale eye opening: Spontaneous [place] coma scale verbal response: Orientated [place] coma scale motor response: Obey commands Yosvany coma scale total score: 15 SENSORY EXAM: Yes extremities (intact) Psych: COMMON NORMALS: speech normal SPEECH: Yes normal speech Skin: COMMON NORMALS: no rashes or lesions noted GENERAL SKIN EXAM: no rashes or lesions noted Course Vital Signs: Vital signs: Vital Signs Temperature 97.8 F 12/16/24 21:46 Pulse Rate 60 12/16/24 21:46 Respiratory Rate 12 12/16/24 21:46 Blood Pressure 109/68 12/16/24 21:46 Pulse Oximetry 94 12/16/24 21:46 Oxygen Delivery Me thod Nasal Cannula 12/16/24 21:46 Oxygen Flow Rate 2 12/16/24 20:58 MDM - Chest Pain Medical Decision Making 79-year-old female with an extensive history of coronary disease. We have no prior records of her having intervention here. She says it has been years since she had any intervention. She has ongoing pain despite morphine and aspirin and nitroglycerin paste. CBC is normal. BMP is normal. Chest x-ray is normal. First troponin is 11. EKG shows a sinus rhythm with a rate of 65, borderline right axis, no acute ST wave changes. Intervals are normal. With her history, the fact that she has not had any intervention done in quite a while, and we have no records here, with ongoing pain, she will be admitted. Cardiology consult. Robert here. Lab Data 12/16/24 19:00 12/16/24 19:00 Radiology Impressions Chest X-Ray 12/16/24 18:34 IMPRESSION: No acute cardiopulmonary findings. Laboratory Results WBC 8.08 10^3/uL (3.29-11.43) 12/16/24 19:00 RBC 4.27 10^6/uL (3.85-5.65) 12/16/24 19:00 Hgb 11.60 g/dL (11.27-16.99) 12/16/24 19:00 Hct 37.2 % (36-47) 12/16/24 19:00 MCV 87.1 fl (85-98) 12/16/24 19:00 MCH 27.2 pg (27-33) 12/16/24 19:00 MCHC 31.2 g/dL (30-55) 12/16/24 19:00 RDW 13.8 % (12.1-15.1) 12/16/24 19:00 Plt Count 203 10^3/cmm (157-399) 12/16/24 19:00 MPV 9.7 fL (7.4-10.4) 12/16/24 19:00 Neut % (Auto) 60.1 % 12/16/24 19:00 Lymph % (Auto) 31.2 % 12/16/24 19:00 [place] % (Auto) 7.1 % 12/16/24 19:00 Eos % (Auto) 0.9 % 12/16/24 19:00 Baso % (Auto) 0.5 % 12/16/24 19:00 Neut # (Auto) 4.86 10^3/uL (1.8-7.7) 12/16/24 19:00 Lymph # (Auto) 2.5 10^3/uL (0.8-4.8) 12/16/24 19:00 [place] # (Auto) 0.6 10^3/uL (0.2-0.9) 12/16/24 19:00 Eos # (Auto) 0.1 10^3/uL (0.0-0.8) 12/16/24 19:00 Baso # (Auto) 0.0 10^3/uL (0.0-0.1) 12/16/24 19:00 Nucleated RBC % (auto) 0 % 12/16/24 19:00 Nucleated RBCs # 0.0 /100WBC 12/16/24 19:00 Sodium 139 mmol/L (136-145) 12/16/24 19:00 Potassium 4.0 mmol/L (3.5-5.1) 12/16/24 19:00 Chloride 101 mmol/L (98-107) 12/16/24 19:00 Carbon Dioxide 25 mmol/L (22-29) 12/16/24 19:00 Anion Gap 17.0 (5-19) 12/16/24 19:00 BUN 11 mg/dL (8-23) 12/16/24 19:00 Creatinine 0.6 mg/dL (0.5-0.9) 12/16/24 19:00 GFR Calculation Not Reportable 12/16/24 19:00 Glucose 119 mg/dL (65-115) H 12/16/24 19:00 Calculated Osmolality 289 mOsm/kg (285-295) 12/16/24 19:00 Calcium 8.9 mg/dL (8.5-10.5) 12/16/24 19:00 Total Bilirubin 0.3 mg/dL (0.15-1.2) 12/16/24 19:00 AST 19 U/L (0-32) 12/16/24 19:00 ALT 14 U/L (0-33) 12/16/24 19:00 Alkaline Phosphatase 68 U/L (35-105) 12/16/24 19:00 Troponin T Baseline 11 ng/L (0-10) H 12/16/24 19:00 NT-Pro-B Natriuret Pep 261 pg/mL (0-450) 12/16/24 19:00 Total Protein 6.7 g/dL (6.6-8.7) 12/16/24 19:00 Albumin 3.9 g/dL (3.5-5.2) 12/16/24 19:00 Globulin 2.8 g/dL (1.3-4.6) 12/16/24 19:00 All radiology interpretation(s) finalized by discharge Discharge Plan Discharge Patient Disposition: Admitted As Inpatient Admit Provider: Migule Taylor Clinical Impression: Unstable angina pectoris Condition: Stable Coding Level of Care Code ED Record Changer Tester for Allison Najera
[2024-12-16 19:34] LABS: Troponin(5th) Baseline 11 ng/L (0-10)
[2024-12-16 19:41] LABS: Alanine Aminotransferase 14 U/L (0-33); Albumin Level 3.9 g/dL (3.5-5.2); Alkaline Phosphatase 68 U/L (35-105); Anion Gap 17.0 (5-19); Aspartate Amino Transferase 19 U/L (0-32); Blood Urea Nitrogen 11 mg/dL (8-23); Calcium 8.9 mg/dL (8.5-10.5); Carbon Dioxide 25 mmol/L (22-29); Chloride 101 mmol/L (98-107); Creatinine Clr Calc Pharmacy 59.1214; Globulin 2.8 g/dL (1.3-4.6); Glucose 119 mg/dL (65-115); NT Pro B Type Natriuretic Pept 261 pg/mL (0-450); Osmolality Calculated 289 mOsm/kg (285-295); Potassium 4.0 mmol/L (3.5-5.1); Sodium 139 mmol/L (136-145); Total Protein 6.7 g/dL (6.6-8.7)
--- NOTE | 2024-12-16 20:34 | ECG_ITS ---
[facility] Date: 2024-12-16 Pat Name: Rosalina Craig Department: Room: 106 Gender: Female Family Readiness Support Assistant: : 1945 Requested By: Galileo Cutler Order Number: [id number] Avilez MD: Joce Murphy M.D. Measurements Intervals [place] Rate: 56 P: 80 [place]: 146 QRS: 89 QRSD: 104 T: 81 QT: 490 QTc: 474 Interpretive Statements SINUS BRADYCARDIA INCOMPLETE RIGHT BUNDLE BRANCH BLOCK [90+ ms QRS DURATION, TERMINAL R IN V1/V2, 40+ ms S IN I/aVL/V4/V5/V6] PROLONGED QT INTERVAL Compared to ECG 12/16/2024 21:06:34 Prolonged QT interval now present Electronically Signed On 12-17-2024 16:00:26 CDT by Jeffrey [id number]
[2024-12-16] MEDS: morphine 4 mg/mL SDV 1 mL 2 MG IVP ×2 (20:51→23:53)
--- NOTE | 2024-12-16 21:06 | ECG_ITS ---
[facility] Test Date: 2024-12-16 Pat Name: Rosalina Craig Department: Room: Gender: Female Project Administrative Assistant: : 1945 Requested By: Galileo Cutler Order Number: [id number] Raghav MD: Joce Murphy M.D. Measurements Intervals [place] Rate: 57 P: 73 [place]: 158 QRS: 95 QRSD: 102 T: 92 QT: 477 QTc: 465 Interpretive Statements SINUS BRADYCARDIA BORDERLINE RIGHT AXIS DEVIATION [QRS AXIS > 90] INCOMPLETE RIGHT BUNDLE BRANCH BLOCK [90+ ms QRS DURATION, TERMINAL R IN V1/V2, 40+ ms S IN I/aVL/V4/V5/V6] Compared to ECG 12/22/2023 16:35:37 No significant changes Electronically Signed On 12-17-2024 15:48:38 CDT by Jeffrey [id number] [id number]
[2024-12-16 21:16] LABS: Troponin 5 2HR 11.60 ng/L (0-10); Troponin 5 2HR Delta 0.60 ABS# (0-10)
--- NOTE | 2024-12-16 22:06 | PM.HP ---
Providers/Chief Complaint Admitting Physician: Miguel Taylor MD Primary Care Provider: Jose Ward MD Chief Complaint: chest pain History of Present Illness Rosalina Craig is a 79 year old female with a past medical history of coronary artery disease, status post quadruple bypass at [facility] in [place] 15 years ago. She states that she has had about 15-16 stents in the past. However has not followed up with cardiology in over 3 years at this point. She presents to the emergency room today complaining of chest pain. The pain started about 24 hours ago. She states it is located on the left side of her chest, radiating into the shoulder and upper arm. No apparent trigger for the chest pain. Onset was while patient was at rest. Yesterday the pain resolved after patient rested in bed. She states that she continued to feel weak during the day today and preferred to stay in bed. She did have 2 more episodes of chest pain this morning and then again in the evening, the latest episode being associated also with bilious emesis. She states that it felt similar to when she had her prior CA and therefore decided to come to the ER. Patient has a history of neck trauma several years ago following which she has had neck surgery. She does have some chronic cervical pain for which she uses fentanyl patch. States that pain yesterday felt different than her chronic cervical pain and fentanyl did not appear to help with the chest pain. She tried ibuprofen at home without any significant improvement. Currently she has a Nitropatch on and the pain is relieved after putting on the patch and having received morphine in the ER. Review of systems is positive for feeling short of breath. She is currently saturating 95% on 2 L/min. Does not typically wear oxygen. She has not noticed any lower extremity edema. Patient has been stressed recently related to having a poor relationship with her children. Review of Systems General: Reports: 10 or more systems reviewed and unremarkable except in HPI and below Const: Denies: fever(s), chills or body aches Eyes: Denies: change in vision, blurry vision or photophobia ENMT: Reports: hoarseness; Denies: throat pain, enlarged tonsils, odynophagia or nasal congestion Card: Denies: chest pain, palpitations, irregular heart rhythm, edema, swelling of feet/ankles, lightheadedness, pre-syncope, dyspnea on exertion or orthopnea Resp: Denies: dyspnea, productive cough, non-productive cough, wheezing, stridor, pain on inspiration, change in phlegm color, hemoptysis or chest congestion GI: Denies: abdominal pain, nausea, vomiting, hematemesis, coffee ground emesis, dysphagia, heartburn, diarrhea, constipation, GI cramping, change in stool character, hematochezia or melena : Denies: flank pain, difficulty voiding, dysuria, urinary frequency, urinary urgency, urinary hesitancy or hematuria Musc: Denies: neck pain, back pain, extremity pain, joint swelling, joint warmth or deformity Neuro: Denies: headache(s), numbness in extremities, weakness in extremities, sensory changes, difficulty walking, frequent falls, dizziness, vertigo, behavioral changes, Slurred speech present or seizure-like activity Psych: Denies: anxiety, depression, suicidal ideation or homicidal ideation Endo: Denies: polyuria, polydipsia, tired all the time, cold intolerance or hot flashes Chad/Lymph: Denies: easy bruising or easy bleeding Medications/Allergies Home Medications ?Medication ?Instructions ?Recorded ?Confirmed ?Last Taken ?Type amlodipine 5 mg tablet 5 mg PO DAILY 12/16/24 12/16/24 Unknown History aripiprazole 5 mg tablet 5 mg PO DAILY 12/16/24 12/16/24 Unknown History estradiol 1 mg tablet 1 mg PO DAILY 12/16/24 12/16/24 Unknown History fentanyl 25 mcg/hr transdermal 25 mcg transdermal Q3D 12/16/24 12/16/24 Unknown History patch furosemide 40 mg tablet 40 mg PO DAILY 12/16/24 12/16/24 Unknown History insulin degludec 200 unit/mL (3 74 unit SUBCUT QA 12/16/24 12/16/24 Unknown History mL) subcutaneous pen (Tresiba FlexTouch U-200 insulin) isosorbide mononitrate 30 mg 30 mg PO DAILY 12/16/24 12/16/24 Unknown History tablet,extended release 24 hr losartan 100 mg tablet 100 mg PO DAILY 12/16/24 12/16/24 Unknown History metoprolol succinate 50 mg 25 mg PO DAILY 12/16/24 12/16/24 Unknown History tablet,extended release 24 hr mirabegron 25 mg tablet,extended 25 mg PO DAILY 12/16/24 12/16/24 Unknown History release 24 hr (Myrbetriq) pregabalin 225 mg capsule 225 mg PO BID 12/16/24 12/16/24 Unknown History trazodone 50 mg tablet 150 mg PO BEDTIME 12/16/24 12/16/24 Unknown History vortioxetine 20 mg tablet 20 mg PO DAILY 12/16/24 12/16/24 Unknown History (Trintellix) Allergies Allergy/AdvReac Type Severity Reaction Status Date / Time No Known Allergies Allergy Verified 08/17/24 09:06 PFSH Acute PFSH: Medical History (Updated 12/17/24 @ 00:02 by Laureen Larkin MD) Chronic pain Coronary artery disease Hypertension Diabetes mellitus Surgical History (Updated 12/16/24 @ 23:58 by Laureen Larkin MD) Status post coronary artery bypass graft Vitals/I&O/Wt Last Vital Signs Temp 97.8 F 12/16/24 21:46 Pulse 60 12/16/24 21:47 Resp 16 12/16/24 21:47 BP 131/56 12/16/24 21:47 Pulse Ox 95 12/16/24 21:47 O2 Del Method Nasal Cannula 12/16/24 21:46 O2 Flow Rate 2 12/16/24 20:58 Weight last 48 hrs Weight 72.665 kg Weight 73.482 kg Physical Exam Narrative: General: No acute distress, AO x3 HEENT: PERRLA, pupils bilaterally equal and reactive, pallors not present Chest: Normal vesicular breath sounds, no added sounds, equal good air entry bilaterally CVS: S1-S2 regular, no murmurs, no tachycardia, no gallops, no rubs Abdomen: Soft, nontender, no organomegaly, bowel sounds present Neuro: No focal deficits, no facial deformity, AO x3, power 5/5 in all limbs Data 12/16/24 19:00 12/16/24 19:00 Other data: Radiology Impressions Chest X-Ray 12/16/24 18:34 IMPRESSION: No acute cardiopulmonary findings. Laboratory Results WBC 8.08 10^3/uL (3.29-11.43) 12/16/24 19:00 RBC 4.27 10^6/uL (3.85-5.65) 12/16/24 19:00 Hgb 11.60 g/dL (11.27-16.99) 12/16/24 19:00 Hct 37.2 % (36-47) 12/16/24 19:00 MCV 87.1 fl (85-98) 12/16/24 19:00 MCH 27.2 pg (27-33) 12/16/24 19:00 MCHC 31.2 g/dL (30-55) 12/16/24 19:00 RDW 13.8 % (12.1-15.1) 12/16/24 19:00 Plt Count 203 10^3/cmm (157-399) 12/16/24 19:00 MPV 9.7 fL (7.4-10.4) 12/16/24 19:00 Neut % (Auto) 60.1 % 12/16/24 19:00 Lymph % (Auto) 31.2 % 12/16/24 19:00 [place] % (Auto) 7.1 % 12/16/24 19:00 Eos % (Auto) 0.9 % 12/16/24 19:00 Baso % (Auto) 0.5 % 12/16/24 19:00 Neut # (Auto) 4.86 10^3/uL (1.8-7.7) 12/16/24 19:00 Lymph # (Auto) 2.5 10^3/uL (0.8-4.8) 12/16/24 19:00 [place] # (Auto) 0.6 10^3/uL (0.2-0.9) 12/16/24 19:00 Eos # (Auto) 0.1 10^3/uL (0.0-0.8) 12/16/24 19:00 Baso # (Auto) 0.0 10^3/uL (0.0-0.1) 12/16/24 19:00 Nucleated RBC % (auto) 0 % 12/16/24 19:00 Nucleated RBCs # 0.0 /100WBC 12/16/24 19:00 D-Dimer 0.42 ug/mLFEU (0-0.59) 12/16/24 19:00 Sodium 139 mmol/L (136-145) 12/16/24 19:00 Potassium 4.0 mmol/L (3.5-5.1) 12/16/24 19:00 Chloride 101 mmol/L (98-107) 12/16/24 19:00 Carbon Dioxide 25 mmol/L (22-29) 12/16/24 19:00 Anion Gap 17.0 (5-19) 12/16/24 19:00 BUN 11 mg/dL (8-23) 12/16/24 19:00 Creatinine 0.6 mg/dL (0.5-0.9) 12/16/24 19:00 GFR Calculation Not Reportable 12/16/24 19:00 Glucose 119 mg/dL (65-115) H 12/16/24 19:00 Calculated Osmolality 289 mOsm/kg (285-295) 12/16/24 19:00 Calcium 8.9 mg/dL (8.5-10.5) 12/16/24 19:00 Total Bilirubin 0.3 mg/dL (0.15-1.2) 12/16/24 19:00 AST 19 U/L (0-32) 12/16/24 19:00 ALT 14 U/L (0-33) 12/16/24 19:00 Alkaline Phosphatase 68 U/L (35-105) 12/16/24 19:00 Troponin T Baseline 11 ng/L (0-10) H 12/16/24 19:00 Troponin T 120 Minute 11.60 ng/L (0-10) H 12/16/24 20:55 Delta Troponin T 0.60 ABS# (0-10) 12/16/24 20:55 NT-Pro-B Natriuret Pep 261 pg/mL (0-450) 12/16/24 19:00 Total Protein 6.7 g/dL (6.6-8.7) 12/16/24 19:00 Albumin 3.9 g/dL (3.5-5.2) 12/16/24 19:00 Globulin 2.8 g/dL (1.3-4.6) 12/16/24 19:00 A&P Assessment and plan 1. Unstable angina pectoris: 2. Chest pain: Plan: 79-year-old lady with an extensive past medical history of coronary artery disease requiring multiple stents and CABG in the past. She is presenting to the hospital today with about 24 hours of ongoing intermittent chest pain, which is currently relieved after having received morphine and nitroglycerin. EKG today is without any acute ST-T wave changes Troponin series is with a baseline troponin of 11, 2-hour at 11.6, with a delta of only 0.6. Awaiting a 6-hour trend. With Current EKG and negative troponins, less likely NSTEMI at this time, however unstable angina is not excluded given her several risk factors including hypertension, diabetes, past history of CAD. Will admit to CSU for continuous telemetry monitoring complete 6-hour troponin series Screening D-dimer was added and returned negative at 0.4, less likely PE. Ordered for echocardiogram to assess for EF, regional wall motion abnormalities. She has received aspirin 324 mg in the emergency room. Will continue with 81 mg p.o. daily. Add atorvastatin 40 mg p.o. daily. Obtain lipid panel and Hba1c. Continue home medications metoprolol and losartan and Lasix 40 mg p.o. daily. Patient is currently clinically euvolemic. Further ischemic evaluation would be warranted, likely with cardiac stress test vs angiogram, to be decided based on pending troponin and EKG trend, cardiology evaluation and recurrence of chest pain. Insulin medium dose sliding scale for DM. DVt ppx: lovenox 40 mg s/c q24h DNR/DNI/ no defibrillation per discussion with patient PDMP PDMP Reviewed: Not Reviewed Attestations Medical Necessity Statement*: Observation admission for now Coding Level of Care Code Acute Code for Chg Fwd High MDM includes number and complexity of problems actively addressed during encounter, amount and/or complexity of data reviewed/ordered and described risk of complication, morbidity or mortality of management as documented Diagnoses Unstable angina pectoris I20.0 Chest pain R07.9
[2024-12-17] VITALS (14 sets, daily range): BP systolic 99–121; BP diastolic 38–61; PULSE 53–66; RESP 12–20; TEMP 36.4–37.1; O2SAT 94–97
[2024-12-17 01:03] LABS: Hematocrit 34.4 % (36-47); Hemoglobin 10.90 g/dL (11.27-16.99); Mean Corpuscular HGB Conc 31.7 g/dL (30-55); Mean Corpuscular Hemoglobin 26.7 pg (27-33); Mean Corpuscular Volume 84.3 fl (85-98); Nucleated Red Blood Cells % 0 %; Platelet Count 224 10^3/cmm (157-399); Red Blood Count 4.08 10^6/uL (3.85-5.65); White Blood Count 7.04 10^3/uL (3.29-11.43)
[2024-12-17 01:24] LABS: Alanine Aminotransferase 12 U/L (0-33); Albumin Level 3.5 g/dL (3.5-5.2); Alkaline Phosphatase 64 U/L (35-105); Anion Gap 14.7 (5-19); Aspartate Amino Transferase 16 U/L (0-32); Blood Urea Nitrogen 13 mg/dL (8-23); Calcium 8.7 mg/dL (8.5-10.5); Carbon Dioxide 29 mmol/L (22-29); Chloride 99 mmol/L (98-107); Cholesterol 218 mg/dL (0-200); Creatinine Clr Calc Pharmacy 58.8176; Globulin 2.7 g/dL (1.3-4.6); Glucose 155 mg/dL (65-115); HDL Cholesterol 45 mg/dL (60-100); Magnesium 1.7 mg/dL (1.7-2.3); Osmolality Calculated 291 mOsm/kg (285-295); Potassium 3.7 mmol/L (3.5-5.1); Sodium 139 mmol/L (136-145); Total Protein 6.2 g/dL (6.6-8.7); Triglycerides 137 mg/dL (0-150); Troponin 5 6HR 12.33 ng/L (0-10); Troponin 5 6HR Delta 1.33 ng/L (0-12)
[2024-12-17 01:33] LABS: Estmated Average Glucose 212; Hemoglobin A1C 9.0 % (4.0-6.0)
--- NOTE | 2024-12-17 02:13 | ECG_ITS ---
[facility] Test Date: 2024-12-17 Pat Name: Rosalina Craig Department: Room: 106 Gender: Female Hardware Technician: : 1945 Requested By: Galileo Cutler Order Number: [id number] Raghav MD: Joce Murphy M.D. Measurements Intervals [place] Rate: 55 P: 54 [place]: 156 QRS: 76 QRSD: 103 T: 83 QT: 491 QTc: 473 Interpretive Statements SINUS BRADYCARDIA LOW QRS VOLTAGE IN PRECORDIAL LEADS [QRS DEFLECTION < 1.0 mV IN CHEST LEADS] INCOMPLETE RIGHT BUNDLE BRANCH BLOCK [90+ ms QRS DURATION, TERMINAL R IN V1/V2, 40+ ms S IN I/aVL/V4/V5/V6] PROLONGED QT INTERVAL Compared to ECG 12/16/2024 22:37:34 No significant change Electronically Signed On 12-17-2024 15:58:28 CDT by Jeffrey [id number]
[2024-12-17] MEDS: morphine 4 mg/mL SDV 1 mL 2 MG IVP ×4 (03:58→20:14)
[2024-12-17] MEDS: nitroglycerin 1 gm/inch oint Pkt 0.5 INCH TOPICAL ×4 (05:23→23:29)
--- OUTSIDE RECORDS SUMMARY | 2024-12-17 08:01 | XMS_ITS | Patient Health Record ---
Author Organization [facility] Address [address] [place] [address] Care Team Providers Care Podiatry Teacher Name Role Phone Jase Ward Primary Care Provider Migration, Provider Unavailable Unavailable Allergies Allergen (clinical drug ingredient) Drug/Non Drug Allergy documented on EMR Reaction Allergy Type Onset Date Status codeine Codeine HCl (uncoded) Unknown Allergy Active meperidine demerol Unknown Drug Allergy Active codeine Codeine , Drug Allergy Active Results Component Value Reference Range Flag Notes Vitamin B12 (B) 97266 Reviewed date:08/03/2024 09:35:33 AM Interpretation: Performing Lab: Notes/Report: [id number] 438 211-911 pg/mL Self-COVID 19 PCR Reviewed date:06/27/2024 03:12:44 PM Interpretation: Performing Lab: Notes/Report: COVID 19 PCR Negative Microalbumin (U) Random 8204 3 Reviewed date:12/11/2024 02:19:19 PM Interpretation: Performing Lab: Notes/Report: Diagnosis Description: Other specified depressive disorder Ur Microalbumin <3.0 .0-30.0 MG/L Ur Creat 115.6 29.0-226.0 Mal/Crea/Ratio <2.6 .0-30.0 mg Alb/g Cr Hip 2-3 View Uni Left w/ Pel vis-[id number] Reviewed date:01/31/2024 06:11:54 AM Interpretation: Performing Lab: Notes/Report: See Below For Report Hip 2-3 View Uni Left w/ Pelvis Read See Below For Report Knee Min 3V Left-79957 Reviewed date:01/31/2024 06:11:54 AM Interpretation: Performing Lab: Notes/Report: See Below For Report Knee Min 3V Left Read See Below For Report Knee Min 3V Right-85435 Reviewed date:01/31/2024 06:11:54 AM Interpretation: Performing Lab: Notes/Report: See Below For Report Knee Min 3V Right Read See Below For Report Thyroid Stimulating Hormone (TSH) 28946 Reviewed date:08/03/2024 09:35:54 AM Interpretation: Performing Lab: Notes/Report: 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 >7.0 % diabetics. EAG 200 NA Estimated Aver age Glucose(EAG). Comprehensive Metabolic Pane l (CMP) 60693 Reviewed date:08/03/2024 09:36:23 AM Interpretation: Performing Lab: Notes/Report: Diagnosis Description: Type 2 diabetes mellitus with other circulatory complications Glucose Serum 145 71-110 MG/DL HI Testing p erformed at [facility], [address] [place] [address] [place] [address]. CLIA ID#: [id number] BUN 15 7-21 MG/DL Creat .64 .51-1.17 MG/DL M-nxhyyb-a-benzoquinon e imine (NAPQI) is a metabolite of [...] 293 280-300 MOSM/KG CBC w\ Auto Diff 36963 Reviewed date:08/03/2024 09:36:11 AM Interpretation: Performing Lab: [...] HI Lymph Auto% 16.7 22.0-44.0 % LOW [place] Auto% 5.4 3.0-7.0 % Eos Auto% .6 2.0-4.0 % LOW Baso Auto% 0.4 0.0-1.0 % Imm Gran% .5 .0-.4 % HI Neutro Abs 9.45 .80-7.70 HI Absolute Neutrophil Count 9450 NA Lymph Abs 2.07 .10-4.10 [place] Abs .67 .20-1.00 Eos Abs .07 .00-.40 Baso Abs .05 .00-.20 Imm Gran Abs .06 .00-.10 NRBC# .00 .00-.20 X10'3 NRBC% .00 .00-.20 /100 intact WBC's Reason For Referral Reason Evaluation of care Diagnosis 1 Cervical post-lamar ctomy syndrome (M96.1) Referral Organization [facility] Referring Provider First Name Roberto ware Referring Provider Last Name Ed Referring Provider Speciality Internal M edicine [facility] General Notes Ines Lewis 04:55:58 PM >faxed [facility] - call [facility] to get ahold of pt between -2, Marta Avalos 03/30/2024 01:17:18 PM >PER ALIYAH, THEY WENT TO VISIT HER TODAY AND SHE REFUSED THE SERVICES Referral Priority Routine Reason she feels like somet ginny is wrong with her right breast implant Diagnosis 1 Malposition of breas t implant, 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) Referral Organization [facility] Referring Provider First Name [...] Provider Speciality Internal M edicine Referred Organization [facility] Referred Provider Lisa Ortez Referred Address [address] [place] [address],[place],[phone], Referral Priority Routine Reason history of shoulder replacement Diagnosis 1 Pain, joint, shoulde r, left (M25.512) Referral Organization [facility] Referring Provider First Name [...] Treat Diagnosis 1 Cardiomegaly (I51.7) Referral Organization [facility] Referring Provider First Name Roberto ware Referring Provider Last Name Ward Referring Provider Speciality Internal M edicine Referred Provider [facility] Shruthi hernandez Referred Provider Specialty Counselor General Notes Ines Lewis 04:27:15 PM >faxed [place] Robbie ROGERS Heidi 10/30/2024 09:30:07 AM >SPOKE TO [facility] AND THEY HAVE BEEN TRYING TO REACH [...] 30 Active Albuterol 0.833 MG/ML / Ipratropium Haslet 0.167 MG/ML Inhalant Solution Albuterol 0.833 MG/ML / Ipratropium Haslet 0.167 MG/ML Inhalant Solution 05/25/2011 Unknown ARIPiprazole [...] 1 tablet Orally Twice a day Unknown SeatMeStyle Ami 3 Plus Sensor - Miscellaneous apply [...] as needed Orally Twice a day Unknown Shot StatsTouch Delica Plus [id number] - Miscellaneous USE DIRECTED TO TEST BLOOD SUGAR THREE TIMES DAILY; Duration: 33 days Active Flonase 50 MCG/DOSE Inhaler 1 spray in each nostril Nasally Once a day; Duration: 30 days Active Metformin hydrochloride 1000 MG Oral Tablet Metformin hydrochloride 1000 MG Oral Tablet 05/25/2011 Unknown [email or web address] 2 [place] - Device as directed in vitro use [...] Notes: PHQ9 - 03/21/24 PHQ9 - 03/21/24 CIME Dep/Tob - 07/26/24 CIME Dep 11/07/24 CIME Dep/Tob - 07/26/24 CIME Dep 11/07/24 CIME Dep/Tob - 07/26/24 CIME Dep/Tob - 07/26/24 CIME Dep/Tob - 07/26/24 CIME Dep/Tob - 07/26/24 Dep/Tob - 07/26/24 PHQ9 - 03/21/24 Tob - 06/27/24 PHQ9 - 03/21/24 Problems Problem Type SNOMED Code ICD Code Onset Dates Problem Status W/U Status Risk Notes Problem Peripheral circulatory disorder associated with diabetes mellitus (760904940) Type 2 diabetes mellitus with other circulatory complications (E11.59) Active confirmed Problem Cardiomegaly (4575672) Cardiomegaly (I51.7) Active confirmed Problem Fever (331469895) Fever, unspecified (R50.9) Active confirmed Problem Long-term current use of insulin (147202403) care home (current) use of insulin (Z79.4) Active confirmed Problem Essential hypertension (00372674) Essential hypertension (I10) Active confirmed Problem Diabetic peripheral neuropathy associated with type 2 diabetes mellitus (9402409611546) Painful diabetic neuropathy (E11.40) Active confirmed Problem Shoulder joint pain (870969671) Pain, joint, shoulder, left (M25.512) Active confirmed Problem Depression (862225852) Other depression (F32.89) Active confirmed Problem Lateral epicondylitis (864141145) Lateral epicondylitis of right elbow (M77.11) Active confirmed Problem Trochanteric bursitis of left hip (674098926164993 ) Trochanteric bursitis of left hip (M70.62) Active confirmed Problem Cervical post-laminectomy syndrome (461694357) Cervical post-laminectomy syndrome (M96.1) Active confirmed Problem 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) (3461380781) 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) Active confirmed Problem Malposition of breast implant, 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) Active confirmed Problem 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) 06/24/19 12 Active confirmed [facility] [place] 6773- Vital Signs Heart Rate 51 /min [...] N/A Encounters Encounter Location Date Provider Diagnosis [facility] [address] [place] [phone] 12/06/2024 Jase Ward Dental infection K04.7 ; Essential hypertension I10 and Cardiomegaly I51.7 [facility] [address] [address] 11/07/2024 Jase Ward Other depression F32.89 ; Cervical post-laminectomy syndrome M96.1 ; Microalbuminuria R80.9 and Depression screen Z13.31 [facility] [address] [place] [address] 10/31/2024 Jase Ward Tooth pain K08.89 ; Type 2 diabetes mellitus with other circulatory complications E11.59 ; Essential hypertension I10 and Depression screen Z13.31 [facility] [address] [place] [phone] 10/10/2024 Jase Ward Essential hypertension I10 ; Type 2 diabetes mellitus with other circulatory complications E11.59 ; Cervical post-laminectomy syndrome M96.1 ; Cardiomegaly I51.7 ; Encounter for immunization Z23 and Immunization not carried out because of patient refusal Z28.21 [facility] [address] [place] [phone] 09/11/2024 Jsae Ward Type 2 diabetes mellitus with other circulatory complications E11.59 ; Cervical post-laminectomy syndrome M96.1 ; Pain, joint, shoulder, left M25.512 and Depression screen Z13.31 [facility] [address] [place] [address] 08/21/2024 Jase Ward Essential hypertension I10 ; Type 2 diabetes mellitus with other circulatory complications E11.59 ; Painful diabetic neuropathy E11.40 ; Cervical post-laminectomy syndrome M96.1 ; Depression screen Z13.31 and Other depression F32.89 [facility] [address] [address] 07/26/2024 Jase Ward Essential hypertension I10 ; Type 2 diabetes mellitus with other circulatory complications E11.59 ; Painful diabetic neuropathy E11.40 and Depression screen Z13.31 [facility] [address] [address] 06/27/2024 Jase Ward Fever, unspecified R50.9 ; Malposition of breast implant, initial encounter T85.42XA and Cervical post-laminectomy syndrome M96.1 [facility] [address] [place] [address] 05/02/2024 Jase Ward Viral URI with cough J06.9 [facility] [address] [address] 04/18/2024 Jase Ward Type 2 diabetes mellitus with other circulatory complications E11.59 ; Essential hypertension I10 ; Cervical post-laminectomy syndrome M96.1 and Depression screen Z13.31 [facility] [address] [address] 02/17/2024 Jase Ward Essential hypertension I10 ; Type 2 diabetes mellitus with other circulatory complications E11.59 ; Cervical post-laminectomy syndrome M96.1 ; Status post fall Z91.81 ; Depression screen Z13.31 and Pain in left shoulder M25.512 [facility] [address] [address] 03/21/2024 Jase Ward Cervical post-laminectomy syndrome M96.1 ; Trochanteric bursitis of left hip M70.62 and Depression screen Z13.31 [facility] [address] [place] [address] 01/03/2024 Jase Ward Trochanteric bursitis of left hip M70.62 and Lateral epicondylitis of right elbow M77.11 [facility] [address] [place] [address] 12/21/2023 Jase Ward Type 2 diabetes mellitus with other circulatory complications E11.59 ; Essential hypertension I10 ; care home (current) use of insulin Z79.4 and Cervical post-laminectomy syndrome M96.1 [facility] [address] [place] [address] 12/27/2023 Jase Ward Bronchial infection J40 [facility] [address] [address] 09/19/2024 Jase Ward [facility] [address] [address] 08/01/2024 Jase Ward Cervical post-laminectomy syndrome M96.1 [facility] 0 0 03/19/2024 Provider Migration [facility] 0 0 03/18/2024 Provider Migration [facility] [address] [address] 07/19/2024 Jase Ward Cervical post-laminectomy syndrome M96.1 [facility] [address] [address] 07/14/2024 Jase Ward [facility] [address] [address] 06/26/2024 Jase Ward [facility] [address] [place] [address] 06/22/2024 Jase Ward Cervical post-laminectomy syndrome M96.1 [facility] [address] [address] 06/13/2024 Jase Ward [facility] [address] [address] 05/29/2024 Jase [facility] [address] [place] [address] 05/18/2024 Jase Ward Cervical post-laminectomy syndrome M96.1 [facility] [address] [place] [address] 04/12/2024 Jase Ward [facility] [address] [place] [address] 03/20/2024 Jase Ward [facility] [address] [place] [address] 03/16/2024 Jase Ward [facility] [address] [place] [address] 03/08/2024 Jase Ward Cervical post-laminectomy syndrome M96.1 [facility] [address] [place] [address] 03/08/2024 Jase Ward [facility] [address] [place] [address] 01/26/2024 Jase Ward Cervical post-laminectomy syndrome M96.1 [facility] [address] [place] [address] 01/13/2024 Jase Ward Cervical post-laminectomy syndrome M96.1 [facility] [address] [place] [address] 12/29/2023 Jase Ward [facility] [address] [place] [address] 12/22/2023 Jase Ward [facility] [address] [place] [address] 12/21/2023 Jase Ward [facility] [address] [place] [address] 12/13/2024 Jase Ward Other depression F32.89 [facility] [address] [place] [address] 11/03/2024 Jase Ward [facility] [address] [place] [address] 10/31/2024 Jase Ward [facility] [address] [place] [address] 10/11/2024 Jase Ward Assessments Encounter Date Diagnosis (ICD Code) Assessment Notes Treatment Notes Treatment Clinical Notes Section Notes 12/27/2023 Bronchial infection (ICD-10 - J40) 01/03/2024 Lateral epicondylitis of right elbow (ICD-10 - M77.11) 01/03/2024 Trochanteric bursitis of left hip (ICD-10 - M70.62) 01/13/2024 Cervical post-laminectomy syndrome (ICD-10 - M96.1) 03/08/2024 Cervical post-laminectomy syndrome (ICD-10 - M96.1) 05/02/2024 Viral URI with cough (ICD-10 - J06.9) She claims not to be allergic to codeine 05/18/2024 Cervical post-laminectomy syndrome (ICD-10 - M96.1) 07/19/2024 Cervical post-laminectomy syndrome (ICD-10 - M96.1) 07/26/2024 Essential hypertension (ICD-10 - I10) 08/01/2024 Cervical post-laminectomy syndrome (ICD-10 - M96.1) 12/13/2024 Other depression (ICD-10 - F32.89) 10/10/2024 Essential hypertension (ICD-10 - I10) 12/21/2023 Type 2 diabetes mellitus with other circulatory complications (ICD-10 - E11.59) 12/21/2023 Essential hypertension (ICD-10 - I10) 11/07/2024 Other depression (ICD-10 - F32.89) 11/07/2024 Cervical post-laminectomy syndrome (ICD-10 - M96.1) 08/21/2024 Type 2 diabetes mellitus with other circulatory complications (ICD-10 - E11.59) 08/21/2024 Essential hypertension (ICD-10 - I10) 06/27/2024 Fever, unspecified (ICD-10 - R50.9) 06/27/2024 Malposition of breast implant, initial encounter (ICD-10 - T85.42XA) 06/22/2024 Cervical post-laminectomy syndrome (ICD-10 - M96.1) 04/18/2024 Type 2 diabetes mellitus with other circulatory complications (ICD-10 - E11.59) 03/21/2024 Cervical post-laminectomy syndrome (ICD-10 - M96.1) 02/17/2024 Type 2 diabetes mellitus with other circulatory complications (ICD-10 - E11.59) 02/17/2024 Essential hypertension (ICD-10 - I10) continue current regimen 12/06/2024 Essential hypertension (ICD-10 - I10) 12/06/2024 Dental infection (ICD-10 - K04.7) 09/11/2024 Type 2 diabetes mellitus with other circulatory complications (ICD-10 - E11.59) 01/26/2024 Cervical post-laminectomy syndrome (ICD-10 - M96.1) 09/11/2024 Cervical post-laminectomy syndrome (ICD-10 - M96.1) 10/31/2024 Tooth pain (ICD-10 - K08.89) 10/31/2024 Type 2 diabetes mellitus with other circulatory complications (ICD-10 - E11.59) 12/06/2024 Cardiomegaly (ICD-10 - I51.7) 02/17/2024 Cervical post-laminectomy syndrome (ICD-10 - M96.1) 09/11/2024 Pain, joint, shoulder, left (ICD-10 - M25.512) 03/21/2024 Trochanteric bursitis of left hip (ICD-10 - M70.62) 04/18/2024 Essential hypertension (ICD-10 - I10) 06/27/2024 Cervical post-laminectomy syndrome (ICD-10 - M96.1) 08/21/2024 Painful diabetic neuropathy (ICD-10 - E11.40) 12/21/2023 care home (current) use of insulin (ICD-10 - Z79.4) 11/07/2024 Microalbuminuria (ICD-10 - R80.9) 10/10/2024 Type 2 diabetes mellitus with other circulatory complications (ICD-10 - E11.59) 07/26/2024 Type 2 diabetes mellitus with other circulatory complications (ICD-10 - E11.59) 10/10/2024 Cardiomegaly (ICD-10 - I51.7) 07/26/2024 Painful diabetic neuropathy (ICD-10 - E11.40) 11/07/2024 Depression screen (ICD-10 - Z13.31) 10/10/2024 Cervical post-laminectomy syndrome (ICD-10 - M96.1) 12/21/2023 Cervical post-laminectomy syndrome (ICD-10 - M96.1) 08/21/2024 Cervical post-laminectomy syndrome (ICD-10 - M96.1) 02/17/2024 Status post fall (ICD-10 - Z91.81) 04/18/2024 Cervical post-laminectomy syndrome (ICD-10 - M96.1) 03/21/2024 Depression screen (ICD-10 - Z13.31) 09/11/2024 Depression screen (ICD-10 - Z13.31) 10/31/2024 Essential hypertension (ICD-10 - I10) 10/31/2024 Depression screen (ICD-10 - Z13.31) 02/17/2024 Depression screen (ICD-10 - Z13.31) 04/18/2024 Depression screen (ICD-10 - Z13.31) 08/21/2024 Depression screen (ICD-10 - Z13.31) 07/26/2024 Depression screen (ICD-10 - Z13.31) 10/10/2024 Encounter for immunization (ICD-10 - Z23) 10/10/2024 Immunization not carried out because of patient refusal (ICD-10 - Z28.21) 08/21/2024 Other depression (ICD-10 - F32.89) refilled [facility] 02/17/2024 Pain in left shoulder (ICD-10 - M25.512) 07/26/2024 Other Venipuncture performed by Henrietta Gracia. Right arm/hand. One attempt. Pt tolerated well, bleeding controlled with light dressing. Lab sent to [facility] via director of critical care. 11/07/2024 Other Dx: Diabetic diagnosis Pt is due for preventive health screenings. We will set up the appropriate screenings for the patient at the facility of choice. Plan Of Treatment Pending Test Test Name Order Date Echo Complete [id number] 10/10/2024 Next Appt Details Provider Name:Jase Ward, 01/03/2025 01:00:00 PM, [address], [place], [address], Insurance Providers Payer Name Payer Address Payer Phone Subscriber Number Group Number Insured Name Patient Relationship to Insured Coverage Start Date Coverage End Date [employer] Medicare Dual Complete PPO [address] [address] [place] [address] [id number] Rosalnia Craig Self - patient is the insured [...] Status :: Active Problem:Coronary arterioscle rosis in chicken ranch artery (disorder) , Status :: Active Problem:Diabetes mellitus (disorder) , S tatus :: Active Problem:Essential hypertension (disorder ) , Status :: Active Problem:Preinfarction syndrome (disorder ) , Status :: Active Hypoglycemia Covid Surgical History Surgery Date(Month/Year) Quatriple bypass hysterectomy appendectomy cabg Low back surgery Neck surgery
[2024-12-17] MEDS: metoprolol succinate ER (24 HR) 50 mg Tablet 25 MG PO (08:21)
--- NOTE | 2024-12-17 10:08 | ECG_ITS ---
[facility] [place] [facility] Date: 2024-12-16 Pat Name: Rosalina Craig Department: Room: 106 Gender: Female Bilingual Student Tutor: : 1945 Requested By: Galileo Cutelr Order Number: [id number] Avilez MD: Joce Murphy M.D. Measurements Intervals [place] Rate: 65 P: 73 ID: 161 QRS: 92 QRSD: 99 T: 94 QT: 449 QTc: 469 Interpretive Statements SINUS RHYTHM BORDERLINE RIGHT AXIS DEVIATION [QRS AXIS > 90] INCOMPLETE RIGHT BUNDLE BRANCH BLOCK [90+ ms QRS DURATION, TERMINAL R IN V1/V2, 40+ ms S IN I/aVL/V4/V5/V6] Compared to ECG 12/22/2023 16:35:37 Sinus bradycardia no longer present Electronically Signed On 12-17-2024 16:01:13 CDT by Jeffrey [email or web address]
--- NOTE | 2024-12-17 11:17 | PC.NURSE ---
per provider nursing entered order for morphine 4mg once.
[2024-12-17] MEDS: morphine 4 mg/mL SDV 1 mL IVP (11:26)
[2024-12-17] MEDS: ondansetron 2 mg/ML SDV 2 mL 4 MG IVP (11:26)
--- NOTE | 2024-12-17 11:44 | PC.NURSE ---
Start a heparin drip per protocol per provider.
[2024-12-17] MEDS: heparin 5,000 unit/mL INJ 1 mL IVP (12:16)
[2024-12-17] MEDS: heparin drip 25,000 UNIT/500 ML PREMIX 21 UNIT IV (12:16)
--- NOTE | 2024-12-17 13:21 | PM.CONSULT ---
Providers/Reason For Consult Consulting Physician/Specialty*: Dr. oJce Murphy Reason for Consult*: Chest pain Attending Physician: Ny Varma MD Primary Care Provider: Jose Ward MD History of Present Illness History of Present Illness Rosalina Craig is a 79 year old female with a history of hypertension, diabetes mellitus, coronary artery disease status post CABG approximately 15 years ago at [facility] per patient. She states subsequently she had multiple stenting procedures. She is not followed with a newborn hearing screener recently. She states it has been multiple years since her last stress test or cardiac catheterization. She has had recurrence of symptoms reminiscent of her past angina including exertional fatigue, shortness of breath and most recently chest discomfort intermittently for 2 days prior to presentation to the emergency room. Currently she is pain-free. She cannot recall why she is not on statin therapy. Medications/Allergies Home Medications ?Medication ?Instructions ?Recorded ?Confirmed ?Last Taken ?Type amlodipine 5 mg tablet 5 mg PO DAILY 12/16/24 12/16/24 Unknown History aripiprazole 5 mg tablet 5 mg PO DAILY 12/16/24 12/16/24 Unknown History estradiol 1 mg tablet 1 mg PO DAILY 12/16/24 12/16/24 Unknown History fentanyl 25 mcg/hr transdermal 25 mcg transdermal Q3D 12/16/24 12/16/24 Unknown History patch furosemide 40 mg tablet 40 mg PO DAILY 12/16/24 12/16/24 Unknown History insulin degludec 200 unit/mL (3 74 unit SUBCUT QAM 12/16/24 12/16/24 Unknown History mL) subcutaneous pen (Tresiba FlexTouch U-200 insulin) isosorbide mononitrate 30 mg 30 mg PO DAILY 12/16/24 12/16/24 Unknown History tablet,extended release 24 hr losartan 100 mg tablet 100 mg PO DAILY 12/16/24 12/16/24 Unknown History metoprolol succinate 50 mg 25 mg PO DAILY 12/16/24 12/16/24 Unknown History tablet,extended release 24 hr mirabegron 25 mg tablet,extended 25 mg PO DAILY 12/16/24 12/16/24 Unknown History release 24 hr (Myrbetriq) pregabalin 225 mg capsule 225 mg PO BID 12/16/24 12/16/24 Unknown History trazodone 50 mg tablet 150 mg PO BEDTIME 12/16/24 12/16/24 Unknown History vortioxetine 20 mg tablet 20 mg PO DAILY 12/16/24 12/16/24 Unknown History (Trintellix) Allergies Allergy/AdvReac Type Severity Reaction Status Date / Time No Known Allergies Allergy Verified 08/17/24 09:06 Current Medications Generic Name Dose Route Start Last Admin Trade Name Niloq PRN Reason Stop Dose Admin Amlodipine Besylate 5 mg 12/17/24 09:00 12/17/24 08:20 Amlodipine 5 Mg Tablet PO 5 mg DAILY [facility] Administration Aripiprazole 5 mg 12/17/24 09:00 12/17/24 08:20 Aripiprazole 10 Mg Tablet PO 5 mg DAILY [facility] Administration Aspirin 81 mg 12/17/24 09:00 12/17/24 08:23 Aspirin 81 Mg Ec Tablet PO 81 mg DAILY [facility] Administration Atorvastatin Calcium 40 mg 12/16/24 23:30 12/16/24 23:51 Atorvastatin 40 Mg Tablet PO 40 mg BEDTIME [facility] Administration Furosemide 40 mg 12/17/24 09:00 12/17/24 08:23 Furosemide 40 Mg Tablet PO 40 mg DAILY [facility] Administration Heparin Sodium/Sodium Chloride 25,000 unit in 500 mls @ 0 mls/hr 12/17/24 12:00 12/17/24 12:16 Heparin Drip IV 14.2 unit/kg/hr CONT [facility] 21 mls/hr Protocol Administration Per Protocol Insulin Human Lispro 0 unit 12/17/24 08:00 12/17/24 12:27 Insulin Lispro 100 Unit/1 Ml SUBCUT Not Given WM&BEDTIME [facility] Protocol Losartan Potassium 100 mg 12/17/24 09:00 12/17/24 08:21 Losartan 50 Mg Tablet PO 100 mg DAILY [facility] Administration Metoprolol Succinate 25 mg 12/17/24 09:00 12/17/24 08:21 Metoprolol Succinate Er (24 Hr) 50 Mg Tablet PO 25 mg DAILY [facility] Administration Morphine Sulfate 2 mg 12/16/24 23:26 12/17/24 08:23 Morphine 4 Mg/Ml Sdv 1 Ml IVP 2 mg Q4H PRN Administration SEVERE PAIN Nitroglycerin 0.5 inch 12/16/24 23:30 12/17/24 11:23 Nitroglycerin 1 Gm/Inch Oint Pkt TOPICAL 0.5 inch Q6H [facility] Administration Ondansetron HCl 4 mg 12/16/24 23:26 12/17/24 11:26 Ondansetron 2 Mg/Ml Sdv 2 Ml IVP 4 mg Q8H PRN Administration vomiting, or N/V if npo Pantoprazole Sodium 40 mg 12/17/24 09:00 12/17/24 08:[address] 40 Mg Tablet PO 40 mg DAILY [facility] Administration Pregabalin 225 mg 12/17/24 09:00 12/17/24 08:21 Pregabalin 75 Mg Capsule PO 225 mg BID [facility] Administration Trazodone HCl 150 mg 12/16/24 23:35 12/16/24 23:51 Trazodone 50 Mg Tablet PO 150 mg BEDTIME [facility] Administration PFSH Acute PFSH: Medical History (Updated 12/17/24 @ 14:21 by Joce Murphy MD) Chronic pain Coronary artery disease Hypertension Diabetes mellitus Surgical History (Updated 12/17/24 @ 14:22 by Joce Murphy MD) Status post coronary artery bypass graft Vitals/I&O/Wt Last Vital Signs Temp 97.8 F 12/17/24 12:00 Pulse 53 L 12/17/24 12:00 Resp 14 12/17/24 12:00 BP 99/38 12/17/24 12:00 Pulse Ox 95 12/17/24 12:00 O2 Del Method Nasal Cannula 12/17/24 12:00 O2 Flow Rate 2 12/17/24 12:00 12/16/24 12/17/24 12/17/24 22:59 06:59 14:59 Intake Total 0 / 0 Output Total 0 / 0 Balance 0 / 0 Weight last 48 hrs Weight 163 lb Weight 162 lb 1.6 oz Weight 160 lb 3.2 oz Weight 162 lb Physical Exam Const: COMMON NORMALS: no acute distress GENERAL APPEARANCE: cooperative and comfortable Neck/C-Spine: COMMON NORMALS: no JVD and No carotid bruits Resp: COMMON NORMALS: normal respiratory effort, No use of accessory muscles and clear to auscultation bilaterally AUSCULTATION: clear to auscultation bilaterally Cardio: COMMON NORMALS: no JVD, regular rate, regular rhythm and No murmurs present (Cardio) RATE: regular rate RHYTHM: regular rhythm Extremity: COMMON NORMALS: normal to inspection and no pedal edema Data 12/17/24 00:45 12/17/24 00:45 A&P Assessment and plan 1. Chest pain: Currently chest pain resolved after Nitropaste 2. Hypertension: Blood pressure currently mildly low 3. Coronary artery disease: 4. Non-STEMI (non-ST elevated myocardial infarction): Mildly elevated high sensitive troponin 5. Status post coronary artery bypass graft: 6. Hyperlipidemia: Plan: Nitropaste have inch every 6 hours IV heparin Start atorvastatin 40 mg nightly Start aspirin 81 mg daily Stop amlodipine Continue metoprolol, Lasix, losartan Echocardiogram performed today?shows normal left ventricular systolic function with no regional wall motion abnormality or any significant valvular abnormality. EF 69% Obtain coronary testing reports from [facility]?coordinated with nurse Keep n.p.o. after midnight Left heart catheterization tomorrow PDMP PDMP Reviewed: Not Reviewed Coding Level of Care Code Acute Code for Chg Fwd Diagnoses Chest pain R07.9 Hypertension I10 Coronary artery disease I25.10 Non-STEMI (non-ST elevated myocardial infarction) I21.4 Status post coronary artery bypass graft Z95.1 Hyperlipidemia E78.5
--- NOTE | 2024-12-17 15:19 | P.PN_ITS ---
Subjective 2 Subjective: Patient had pain with recurrent chest pain since I had received the patient as overnight tall over. I added heparin drip along with giving some morphine for pain medication as the pain had escalated to 8/10. Her troponin had not been that high but this chest pain is consistent with unstable angina. Case discussed with Dr. Zamoarno who added that the patient is going to go for heart cath in the morning by Dr. Sesay. I had gone by to check on the patient and patient has been pain-free since heparin drip had been initiated. Vitals/I&O/Wt Last Vital Signs Temp 97.8 F 12/17/24 12:00 Pulse 53 L 12/17/24 12:00 Resp 14 12/17/24 12:00 BP 99/38 12/17/24 12:00 Pulse Ox 95 12/17/24 12:00 O2 Del Method Nasal Cannula 12/17/24 12:00 O2 Flow Rate 2 12/17/24 12:00 Weight last 48 hrs Weight 73.936 kg Weight 73.527 kg Weight 72.665 kg Weight 73.482 kg Physical Exam 2 Narrative: Generally patient looks well at this time on heparin drip Patient with unstable angina. HEENT normocephalic atraumatic Neck neck is supple Cardiovascular heart rate is regular Lungs are clear Abdomen is soft nontender nondistended unremarkable Extremities are intact, no edema has good pulses neurology no focality Data 12/17/24 00:45 12/17/24 00:45 A&P Assessment and plan 1. Status post coronary artery bypass graft: Patient with extensive unimpressive cardiovascular risk factor and disease In with chest pain significant for unstable angina Patient on heparin drip at this time Must be made n.p.o. for cath tomorrow Cardiology on the case Dr. Murphy saw the patient today and Dr. Barkley will be cathing the patient tomorrow 2. Non-STEMI (non-ST elevated myocardial infarction): Patient had troponin elevation with no delta Will continue to monitor Continue heparin drip Patient had had prior CABG and a total of 16 stents to date Was continue to monitor and follow closely 3. Hyperlipidemia: Continue with statins 4. Unstable angina pectoris: Continue care as per above Heparin drip N.p.o. after midnight Statins Monitor patient closely Plan: GI and DVT prophylaxis in place PDMP PDMP Reviewed: Not Reviewed Attestations 2 Medical Necessity Statement*: Patient with impressive cardiovascular risk factors and disease with recurrent chest pain even on admission desire to be taken to cardiac catheterization for care. Will need at least minimum of 2 midnights for optimization of this patient care Coding Level of Care Code 85402 Diagnoses Status post coronary artery bypass graft Z95.1 Non-STEMI (non-ST elevated myocardial infarction) I21.4 Hyperlipidemia E78.5 Unstable angina pectoris I20.0 Time Spent (min) 45
[2024-12-17 19:10] LABS: Partial Thromboplastin Time 68.4 SECONDS (23.9-36.7)
--- NOTE | 2024-12-17 23:28 | USCV_ITS ---
Rafa Rosalina Age: 79 Gender: F : 1945 Exam Date: 12/17/2024 09:42 Ordering Phys: Laureen Larkin MD Technologist: Tay Cali Exam Location: [facility] Indication: angina BP: 107 / 61 HR: 53 Rhythm: Sinus Technical Quality: Adequate MEASUREMENTS (Male / Female) Normal Values 2D ECHO LV Diastolic Diameter PLAX 5.1 cm 4.2 - 5.9 / 3.9 - 5.3 cm IVS Diastolic Thickness 0.9 cm 0.6 - 1.0 / 0.6 - 0.9 cm IVS Systolic Thickness 1.1 cm LVPW Diastolic Thickness 0.9 cm 0.6 - 1.0 / 0.6 - 0.9 cm LVPW Systolic Thickness 1.6 cm LVOT Diameter 1.9 cm LV Ejection Fraction 2D Teich 62.5 % LV Ejection Fraction MOD 4C 77.7 % LV Ejection Fraction MOD 2C 70.3 % LV Ejection Fraction 2C AL 69.0 % LA Diameter 4.2 cm RA Systolic Volume 4C AL 48.1 ml RA Systolic Volume 4C MOD 41.8 ml LA Sys Volume AL 51.0 cm cubed LA Sys Volume Index AL 27.6 cm cubed/m squared Aorta at Sinotubular Diameter 2.5 cm IVC Diameter 1.5 cm DOPPLER AV Peak Velocity 138.0 cm/s LVOT Peak Velocity 81.0 cm/s AV Area Cont Eq vti 1.4 cm squared AV Area Cont Eq pk 1.7 cm squared MV Peak Velocity 131.0 cm/s MV Area PHT 3.9 cm squared Mitral E to A Ratio 1.0 TV Peak Velocity 237.5 cm/s TR Peak Velocity 313.0 cm/s TR Peak Gradient 39.2 mmHg TR Mean Velocity 248.0 cm/s TR Mean Gradient 26.2 mmHg TR Velocity Time Integral 96.8 cm PV Peak Velocity 80.0 cm/s RV Ejection Time 0.3 s FINDINGS Left Ventricle Normal left ventricular size, systolic function and wall thickness. EF 69%. No regional wall motion abnormality. Unable to assess left ventricular diastolic function due to severe mitral annular calcification. Right Ventricle Normal right ventricular size and systolic function Right Atrium Normal right atrial size Left Atrium Normal left atrial size Mitral Valve Severe mitral annular calcification. No mitral regurgitation or stenosis Aortic Valve Normal aortic valve structure and function Tricuspid Valve Trace tricuspid valve regurgitation. Normal pulmonary pressure Pulmonic Valve Trace pulmonic valve regurgitation Pericardium No pleural effusion Aorta Normal aortic root and ascending aorta size IVC Normal IVC size. CONCLUSIONS 1. Normal left ventricular systolic function. No regional wall motion abnormality. EF 69% 2. Normal right ventricular size and systolic function 3. No significant valvular abnormality. Joce Murphy MD (Electronically Signed) Final Date: 17 December 2024 14:07 S
[2024-12-18] VITALS (12 sets, daily range): BP systolic 106–170; BP diastolic 49–85; PULSE 55–66; RESP 12–23; TEMP 36.1–36.5; O2SAT 90–99
[2024-12-18] MEDS: morphine 4 mg/mL SDV 1 mL 2 MG IVP ×5 (00:06→20:17)
[2024-12-18] MEDS: ondansetron 2 mg/ML SDV 2 mL 4 MG IVP ×2 (00:11→16:26)
[2024-12-18 00:54] LABS: Partial Thromboplastin Time 76.8 SECONDS (23.9-36.7)
[2024-12-18] MEDS: nitroglycerin 1 gm/inch oint Pkt 0.5 INCH TOPICAL ×2 (04:55→23:02)
--- NOTE | 2024-12-18 07:11 | XACV_ITS ---
Exam Room: [facility] Ht: 165 cm Wt: 75 kg BSA: 1.87 m2 Gender: Female : 1945 Any Known Allergies: No known allergies Exam Priority: Routine Indication(s): - Non-ST elevation MA Procedure(s): Procedure Description: Diagnostic procedure Procedure Description: PCI procedure Procedure Description: Aortogram Procedure Description: Drug Eluting Coronary Stent Procedure Description: PTCA Procedure Description: Miscellaneous Procedure Description: Angio-Seal Procedure Description: ACT Procedure Description: Coronary Angiography Diagnostic Cath Status: Urgent Diagnostic Findings * Left Main has no significant disease. * Left Anterior Descending is ostially occluded. * Right Coronary Artery has ostial chronic total occlusion. * Mid Circumflex: critical 95% stenosis, NIK: 2 flow. * BYPASS GRAFTS: PIRES to LAD is patent. SVG to RCA is patent. PDA has moderate 60% stenosis. SVG to diagonal artery is patent. * Coronary angiography shows right dominance. PCI Status: Urgent PCI Indication: NSTE - ACS Interventional Findings * Mid Circumflex: 95% stenosis treated with a AB TREK 2.25X12 RX BALLOON, and MDT R EMIR 2.25X18 JEISON. * Procedure detail: We engaged left main artery with XB 3.5 guidecatheter. IV heparin was administered to maintain anticoagulation. Runthrough guidewire was used to cross the critical left cirucmflex artery stenosis. We predilatd the stenosis with 2.25x12 mm semicompliant balloon. This was followed by placement of 2.40t58lg Resolute emir JEISON. At this time final angiogram was performed that showed excellent stent expansion and no residual stenosis. 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 Conclusions 1. Critical mid left circumflex artery stenosis s/p PCI with 1 stent. 2. Patient has prior CABG. 3. Mid Circumflex was treated with a Balloon, and Drug Eluting Stent. Recommendations * Dual antiplatelet therapy with aspirin and plavix for atleast 1 year. * High intensity statin therapy. * Outpatient cardiology follow up in 2 weeks. Interventional RX Recommendation: PCI w/o planned CABG Diagnostic RX Recommendation: PCI w/o planned CABG Anticoagulation: Heparin Pressures Phase:Rest AO : 141 / 51 ( 83 ) @ 10:27:00 AM Clinical Evaluation EBL: 5mL-10mL Procedural Details Procedure Consent Obtained. Pre-Procedure Time Out. Identified patient by full name and date of as verbalized by the patient/guarantor. Does the consent match the physician's order: Yes. Accurate & Complete Informed Consent: Yes. Inpatient/Outpatient History & Physical on Chart: Yes. If H&P is completed, is and addenduem needed: No. Visualize and Verify Site with Patient/Guarantor: N/A. Relevant Radiology Images available: Yes. The risks, benefits, and alternatives of sedation and/or procedure were discussed by physician. The patient agrees to continue. Procedure started. [facility] Clinical Fraility Score: 4: Vulnerable. 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 Chest Pain Symptom Assessment: Typical Angina Symptoms. Cardiovascular Instability: No. Correct patient, site and procedure confirmed by cath team. Current diagnosis: NSTEMI. PERRLA. Strong, equal hand coagulant dipper bilaterally. Lungs clear x 5 lobes. IV Site on Arrival: 20 gauge in the right hand. IV Fluids: 0.9% NaCl at KVO. 0 mL infused prior to semiconductor lab technician. Pre Procedural Pulses: bilateral dorsalis pedis was 2+. Pre Procedural Pulses: bilateral posterior tibial was 2+. Oxygen started at 2liters/min via nasal canula. bilateral groins was prepped with chloroprep then draped in the usual sterile fashion. Physician notified. Baseline sample Acquired. HR: 60 BPM. Patient's family unavailable. The patient stated that she would update her family after the procedure. Equipment: 6F - Femoral. Cardiac Cath Pack. ACIST Manifold Kit Model BT 2000. Heparinized Saline (2 units/mL), 1000 mL bag. Kit, Micropuncture. Physician arrived. Physician scrubbed in. Immediate Pre-Procedure Time Out. Correct Patient: Yes; Correct Procedure: Yes; Correct Site: Yes; Correct Patient Position: Yes; Correct Supplies: Yes; Dried Flammable Prep: Yes; Blood Products Available: N/A;. Lidocaine 1% infiltrated to the right groin. Arterial access obtained with micropuncture set. A 5 solomon islander JL4 catheter in over the standard J wire. Multiple views taken of left coronary artery. Catheter removed over the standard wire. A 5 solomon islander JR4 catheter in over the standard J wire. Multiple views taken of right coronary artery. Catheter redirected to the SVG --> Diagonal. SVG's to Diagonal visualized. Catheter redirected to the SVG --> RCA. SVG's to RCA visualized. Catheter redirected to the PIRES --> LAD. PIRES to LAD visualized. Catheter removed over the standard J wire. A 5 solomon islander Angled Pig catheter in over wire. Aortogram performed in THAPA @ 10 mL/second for a total of 30 mL. Catheter removed over the standard J wire. PCI Indication: NSTE. 6 solomon islander XB 3.5 guide catheter was inserted over the standard J wire. Runthrough guidewire was advanced through the guide catheter to lesion in the mid Circ. Inflation number : 1 A AB TREK 2.25X12 RX BALLOON was prepped and advanced across the Mid CX , then inflated to 8 SANDOR for 0:18 seconds. Inflation number: 2 The AB TREK 2.25X12 RX BALLOON was reinflated across the Mid CX, to 8 SANDOR for 0:09 seconds. Inflation number: 3 The AB TREK 2.25X12 RX BALLOON was reinflated across the Mid CX, to 8 SANDOR for 0:09 seconds. Balloon out. Results checked. Inflation Number : 4 A FRANK Price EMIR 2.25X18 JEISON -Lot Number# [id number] prepped and advanced across the Mid CX. The stent was deployed at 12 SANDOR for 0:18 seconds. Exp. . Stent balloon out over wire. ACT drawn. Results out of range HI. Will redraw. Results checked. Guide catheter out over the standard J wire. Wire out. Dr. Barkley scrubbed out to view cineography. Side port of sheath attached to Heparinized Saline flush at KVO to maintain patency. Dr. Barkley scrubbed back in. A 5 solomon islander AL1 catheter in over the standard J wire. Multiple views taken of left coronary artery. ACT drawn. Results 241 seconds. Therapeutic limits - pre-heparin administration 90-150 seconds and monitoring heparin during a vascular procedure >250 seconds. Catheter removed over the standard J wire. A Right femoral angiogram was performed to determine safe placement of closure device. A Angio-Seal VIP ([facility] [facility]) was successful obtaining hemostatsis at the Right Femoral artery insertion site. Angioseal placed without complications. No signs or symptoms of hematoma noted. Sterile dressing applied per usual sterile fashion. Lot #[id number]. Exp . Post Procedure: Pulses reassessed and unchanged. PERRLA. Strong, equal hand coagulant dipper bilaterally. No VTE prophylaxis required. Medication's Wasted: Heparin = 4000 Units. Medication's Wasted: Other = Versed 1 mg. Medication's Wasted: Other = Fentanyl 50 mcg. Total IV fluids: 65 mL. Post-op diagnosis: JEISON to the mid CX x 1. Complications: none. Estimated blood loss: 5mL-10mL. Responsiveness - Normal response to verbal stimuli; alert and oriented, PERRLA. Airway - Unaffected, no intervention required; spontaneous ventilation. Circulation: W/N/L, pulses unchanged. Nausea/Vomiting: No. Procedure completed. Patient transferred by bed to 1st floor. Vital chart was stopped. Access Site Site: Right Femoral artery Sheath Size: 6 Fr Hemostasis Method: Angio-Seal VIP ([facility]) Hemostasis Success: Successful Procedure Medications Start: 9:02 AM Stop: 9:02 AM Medication: Versed Amount: 1 mg Route: I.V. Start: 9:03 AM Stop: 9:03 AM Medication: Fentanyl Amount: 50 mcg Route: I.V. Start: 9:24 AM Stop: 9:24 AM Medication: Heparin Amount: 5000 units Route: I.V. Start: 9:50 AM Stop: 9:50 AM Medication: Heparin Amount: 2000 units Route: I.V. I, the attending physician, have reviewed and verified all procedure medications. Yes, all medications given per verbal order History/Risk Factors Hypertension: Yes Dyslipidemia: Yes Peripheral Arterial Disease (PAD): No Myocardial Infarction (MA): No Obesity: No Renal Disease: No Tobacco Use: Never Prior Interventions PCI: No CABG: Yes Valve Surgery: No Report Signatures Finalized by Seven Barkley MD on 12/24/2024 11:06 PM
[2024-12-18 08:01] LABS: Partial Thromboplastin Time 48.1 SECONDS (23.9-36.7)
[2024-12-18] MEDS: metoprolol succinate ER (24 HR) 50 mg Tablet 25 MG PO (08:38)
--- NOTE | 2024-12-18 08:52 | PC.NURSE ---
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
--- NOTE | 2024-12-18 10:03 | W.PM.OPSUD ---
Surgery/Procedure H&P Update DATE OF PROCEDURE: December 18, 2024 DATE H&P PERFORMED: 12/18/24 H&P UPDATE INFORMATION: I have reviewed H&P completed within last 30 days, I have examined patient prior to procedure and No changes to prior documentation PREOP DIAGNOSIS: NSTEMI/ Unstable angina PRIMARY INDICATION FOR PROCEDURE: NSTEMI/ Unstable angina PLANNED PROCEDURE: Left heart cath with possible percutaneous coronary intervention PATIENT REASSESSED PRIOR TO SEDATION, WITH NO CHANGE NOTED: Yes PHYSICAL EXAM: alert, oriented x 3, clear to auscultation bilaterally and regular rate & rhythm AIRWAY EVAL/ANESTHESIA PLAN: normal airway, ASA III, Local Anesthesia, Risks, benefits & alternatives of sedation and/or procedure discussed and Patient agrees to continue as planned ADDITIONAL INFORMATION: Moderate sedation
--- NOTE | 2024-12-18 10:04 | PM.PROC ---
Procedure Note: Date of procedure: 12/18/24 Pre-procedure diagnosis: NSTEMI/ Unstable angina Post-procedure diagnosis: other Procedure: Left main artery is patent futility is occluded due to to RCA is a history occluded. Left circumflex artery has mid vessel 95% stenosis. Large sized OM branch is patent. SVG to diagonal artery is patent. SVG to RCA is patent. [place] PDA has moderate disease. PIRES to LAD is patent. Culprit vessel for non-ST elevation [place]/unstable angina is mid to left circumflex artery which is medium sized vessel. Status post successful revascularization with 1 stent. Dual antiplatelet therapy with aspirin and plavix High intensity statin therapy Performing Provider: Seven Barkley Complications: None Condition: stable Disposition: floor Coding Level of Care Code Acute Code for Chg Fwd
--- NOTE | 2024-12-18 10:05 | PC.NURSE ---
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 1400 is her up time. NS to run at 50ml/hr for 6 hours,
--- NOTE | 2024-12-18 11:30 | P.PN_ITS ---
<Statement entered by Joce Murphy MD - 12/18/24 18:33> Patient was evaluated and cared for in conjunction with an advanced practice practitioner.? I personally reviewed the chart and all pertinent data including imaging, telemetry, and laboratory results.? I discussed the patient in detail with the advanced practice practitioner and agree with the plan. Subjective 2 Subjective: She underwent coronary angiogram this morning: PIRES to LAD patent, SVG to RCA patent, SVG to diagonal patent, large size OM patent, left circumflex contained significant stenosis treated with JEISON x 1. Vitals/I&O/Wt Last Vital Signs Temp 97.1 F L 12/18/24 08:00 Pulse 56 L 12/18/24 10:33 Resp 14 12/18/24 08:00 BP 135/65 12/18/24 08:38 Pulse Ox 93 12/18/24 08:00 O2 Del Method Room Air 12/18/24 08:00 O2 Flow Rate 2 12/17/24 16:00 12/17/24 12/18/24 12/18/24 22:59 06:59 14:59 Intake Total 600 / 879.3 279.3 / 879.3 154.433 / 154.433 Balance 600 / 879.3 279.3 / 879.3 154.433 / 154.433 Weight last 48 hrs Weight 165 lb 1.6 oz Weight 163 lb Weight 162 lb 1.6 oz Weight 160 lb 3.2 oz Weight 162 lb Physical Exam 2 Const: COMMON NORMALS: no acute distress and patient oriented x3 GENERAL APPEARANCE: cooperative ORIENTATION/CONSCIOUSNESS: Yes awake, Yes oriented to person, Yes oriented to place and Yes oriented to time Chest: COMMONS NORMALS: normal inspection of the chest and normal palpation of entire chest wall CHEST: Yes Symmetrical chest wall rise Resp: COMMON NORMALS: normal respiratory effort, No retractions, No use of accessory muscles and clear to auscultation bilaterally AUSCULTATION: clear to auscultation bilaterally Cardio: COMMON NORMALS: regular rate, regular rhythm, S1 normal heart sound present, S2 normal heart sound present, No gallops present (Cardio), No clicks present (Cardio), No murmurs present (Cardio) and No rub (Cardio) RATE: r egular rate RHYTHM: regular rhythm HEART SOUNDS: S1 normal heart sound present and S2 normal heart sound present PERIPHERAL PULSES: radial pulses present positive right 2+ and femoral pulses present positive right 2+ Neuro: COMMON NORMALS: patient oriented x3 and moves all extremities S ENSORIUM/ORIENTATION: Yes oriented to person, Yes oriented to place and Yes oriented to time Skin: WOUNDS: Yes surgical site (no hematoma palpable) Details: no odor Data 12/17/24 00:45 12/17/24 00:45 A&P Assessment and plan 1. Non-STEMI (non-ST elevated myocardial infarction): 2. Coronary artery disease: 3. Hypertension: 4. Hyperlipidemia: 5. Diabetes mellitus: Plan: S/P stent to left circumflex this morning. Will continue aspirin and Plavix, atorvastatin 40 mg daily. No chest pain currently, blood pressure controlled. Continue metoprolol succinate, losartan, Lasix. PDMP PDMP Reviewed: Not Reviewed Attestations 2 Medical Necessity Statement*: Stent to the left circumflex Coding Level of Care Code Acute Code for [facility] Diagnoses Non-STEMI (non-ST elevated myocardial infarction) I21.4 Coronary artery disease I25.10 Hypertension I10 Hyperlipidemia E78.5 Diabetes mellitus E11.9
--- NOTE | 2024-12-18 14:13 | P.PN_ITS ---
Subjective 2 Subjective: S/P cath with stent placed to left circumflex. Vitals/I&O/Wt Last Vital Signs Temp 96.9 F L 12/18/24 12:00 Pulse 57 L 12/18/24 12:00 Resp 22 H 12/18/24 12:00 BP 130/54 12/18/24 12:00 Pulse Ox 99 12/18/24 12:00 O2 Del Method Nasal Cannula 12/18/24 12:00 O2 Flow Rate 2 12/18/24 12:00 12/17/24 12/18/24 12/18/24 22:59 06:59 14:59 Intake Total 600 / 600 279.3 / 879.3 514.433 / 514.433 Balance 600 / 600 279.3 / 879.3 514.433 / 514.433 Weight last 48 hrs Weight 74.888 kg Weight 73.936 kg Weight 73.527 kg Weight 72.665 kg Weight 73.482 kg Physical Exam 2 Const: COMMON NORMALS: no acute distress, patient oriented x3 and healthy appearing HENMT: COMMON NORMALS: normocephalic and atraumatic HEAD & SCALP: n ormocephalic and atraumatic Eye: COMMON NORMALS: Equal, round and reactive pupils present PUPIL: Yes Equal, round and reactive pupils present Chest: COMMONS NORMALS: normal palpation of entire chest wall (no pain pn palpation of chest wall) Resp: COMMON NORMALS: normal respiratory effort and clear to auscultation bilaterally AUSCULTATION: clear to auscultation bilaterally Cardio: COMMON NORMALS: regular rate, regular rhythm, No gallops present (Cardio), No murmurs present (Cardio) and No rub (Cardio) RATE: regular rate RHYTHM: regular rhythm GI: COMMON NORMALS: Soft to palpation, non-tender and no masses PALPATION: Yes Soft to palpation Neuro: COMMON NORMALS: patient oriented x3 and CN's II-XII intact bilaterally Psych: COMMON NORMALS: mental status grossly normal Data 12/17/24 00:45 12/17/24 00:45 A&P Assessment and plan 1. Non-STEMI (non-ST elevated myocardial infarction): 2. Coronary artery disease: 3. Hypertension: 4. Hyperlipidemia: 5. Diabetes mellitus: Plan: 79 year old female presenting with chest pain, now s/p stent placement. CVA, unstable anginal chest pain. Non-STEMI (non-ST elevated myocardial infarction): - History of coronary artery bypass graft and a total of 16 stents to date - extensive impressive cardiovascular risk factors and disease - Patient had troponin elevation with no delta - D/C heparin drip after cath. - she was started on heparin drip in preparation for cardiac cath. - Cardiology following Dr. Murphy saw the patient today and Dr. Barkley performing cathing - now s/p stent to left circumflex - cont DAPT with ASA/Plavix - chest pain currently minimal Hyperlipidemia: - Continue with statin HTN - cont. amlodipine, losartan, BB Chronic pain - fentanyl patch as OP. Diet: advance to HH/CC Disposition - cont. home medication regimen - discharge planning for the AM if no other issues. PDMP PDMP Reviewed: Not Reviewed Attestations 2 Medical Necessity Statement*: Medical necessity 2/2 NSTEMI and now post cardiac cath care. Anticipate D/C in the AM. Time Spent in Patient Care: 16 - 35 minutes Coding Level of Care Code Acute Code for [facility] Diagnoses Non-STEMI (non-ST elevated myocardial infarction) I21.4 Coronary artery disease I25.10 Hypertension I10 Hyperlipidemia E78.5 Diabetes mellitus E11.9
[2024-12-18] MEDS: metoclopramide 5 mg/mL SDV 2 mL IVP (20:17)
[2024-12-19] VITALS (9 sets, daily range): BP systolic 131–163; BP diastolic 54–62; PULSE 59–81; RESP 16–22; TEMP 36.6–36.8; O2SAT 91–96
[2024-12-19] MEDS: morphine 4 mg/mL SDV 1 mL 2 MG IVP ×3 (00:13→11:23)
[2024-12-19 02:53] LABS: Hematocrit 32.6 % (36-47); Hemoglobin 10.50 g/dL (11.27-16.99); Mean Corpuscular HGB Conc 32.2 g/dL (30-55); Mean Corpuscular Hemoglobin 27.1 pg (27-33); Mean Corpuscular Volume 84.2 fl (85-98); Nucleated Red Blood Cells % 0 %; Platelet Count 158 10^3/cmm (157-399); Red Blood Count 3.87 10^6/uL (3.85-5.65); White Blood Count 6.00 10^3/uL (3.29-11.43)
[2024-12-19 04:50] LABS: Anion Gap 12.4 (5-19); Blood Urea Nitrogen 11 mg/dL (8-23); Calcium 8.3 mg/dL (8.5-10.5); Carbon Dioxide 29 mmol/L (22-29); Chloride 104 mmol/L (98-107); Creatinine Clr Calc Pharmacy 61.0782; Glucose 98 mg/dL (65-115); Osmolality Calculated 293 mOsm/kg (285-295); Potassium 3.4 mmol/L (3.5-5.1); Sodium 142 mmol/L (136-145)
[2024-12-19] MEDS: nitroglycerin 1 gm/inch oint Pkt 0.5 INCH TOPICAL (06:25)
[2024-12-19] MEDS: metoprolol succinate ER (24 HR) 50 mg Tablet 25 MG PO (08:27)
--- NOTE | 2024-12-19 09:47 | P.PN_ITS ---
<Statement entered by Joce Murphy MD - 12/19/24 21:11> Patient was evaluated and cared for in conjunction with an advanced practice practitioner.? I reviewed the chart and all pertinent data.? I discussed the patient in detail with the advanced practice practitioner.? Please see? their note for complete note and agreed upon plan. Subjective 2 Subjective: She has some mild chest soreness this morning. Will observe over the course of the day. No worsening shortness of breath, lower extremity edema. Creatinine 0.5 today. Will switch her from Nitro-Bid paste to isosorbide mononitrate, uptitrate to 60 mg daily. Some uncontrolled blood pressures noted overnight. No complications with femoral cath site. Vitals/I&O/Wt Last Vital Signs Temp 98.1 F 12/19/24 08:00 Pulse 72 12/19/24 08:00 Resp 16 12/19/24 08:00 BP 137/62 12/19/24 08:28 Pulse Ox 95 12/19/24 08:00 O2 Del Method Room Air 12/19/24 02:20 O2 Flow Rate 2 12/18/24 12:00 12/18/24 12/19/24 12/19/24 22:59 06:59 14:59 Intake Total 666.267 / 2420.700 1240 / 2420.700 240 / 240 Balance 666.267 / 2420.700 1240 / 2420.700 240 / 240 Weight last 48 hrs Weight 173 lb 9.6 oz Weight 165 lb 1.6 oz Weight 163 lb Physical Exam 2 Const: COMMON NORMALS: no acute distress and patient oriented x3 GENERAL APPEARANCE: cooperative ORIENTATION/CONSCIOUSNESS: Yes awake, Yes oriented to person, Yes oriented to place and Yes oriented to time Chest: COMMONS NORMALS: normal inspection of the chest and normal palpation of entire chest wall CHEST: Yes Symmetrical chest wall rise Resp: COMMON NORMALS: normal respiratory effort, No retractions, No use of accessory muscles and clear to auscultation bilaterally AUSCULTATION: clear to auscultation bilaterally Cardio: COMMON NORMALS: regular rate, regular rhythm, S1 normal heart sound present, S2 normal heart sound present, No gallops present (Cardio), No clicks present (Cardio), No murmurs present (Cardio) and No rub (Cardio) RATE: r egular rate RHYTHM: regular rhythm HEART SOUNDS: S1 normal heart sound present and S2 normal heart sound present PERIPHERAL PULSES: radial pulses present positive right 2+ and femoral pulses present positive right 2+ Neuro: COMMON NORMALS: patient oriented x3 and moves all extremities S ENSORIUM/ORIENTATION: Yes oriented to person, Yes oriented to place and Yes oriented to time Skin: WOUNDS: Yes surgical site (no hematoma palpable) Details: no odor Data 12/19/24 02:47 12/19/24 02:47 A&P Assessment and plan 1. Coronary artery disease: 2. Status post coronary artery bypass graft: 3. Non-STEMI (non-ST elevated myocardial infarction): 4. Hypertension: 5. Diabetes mellitus: Plan: She is s/p stent to the circumflex, patent bypass grafts. Will uptitrate her home dose of Imdur, discontinue Nitropaste. Continue to monitor blood pressure. Anticipate discharge tomorrow. PDMP PDMP Reviewed: Not Reviewed Attestations 2 Medical Necessity Statement*: Possible DC tomorrow Coding Level of Care Code Acute Code for [facility] Diagnoses Coronary artery disease I25.10 Status post coronary artery bypass graft Z95.1 Non-STEMI (non-ST elevated myocardial infarction) I21.4 Hypertension I10 Diabetes mellitus E11.9
[2024-12-19] MEDS: ondansetron 2 mg/ML SDV 2 mL 4 MG IVP (11:23)
--- NOTE | 2024-12-19 12:23 | P.PN_ITS ---
Subjective 2 Subjective: mild chest pain this AM. Vitals/I&O/Wt Last Vital Signs Temp 98.1 F 12/19/24 08:00 Pulse 72 12/19/24 08:00 Resp 16 12/19/24 11:23 BP 137/62 12/19/24 08:28 Pulse Ox 94 12/19/24 11:23 O2 Del Method Room Air 12/19/24 02:20 O2 Flow Rate 2 12/18/24 12:00 12/18/24 12/19/24 12/19/24 22:59 06:59 14:59 Intake Total 666.267 / 2373.437 3566 / 2420.700 240 / 240 Balance 666.267 / 4875.661 3685 / 2420.700 240 / 240 Weight last 48 hrs Weight 78.744 kg Weight 74.888 kg Physical Exam 2 Const: COMMON NORMALS: no acute distress and patient oriented x3 GENERAL APPEARANCE: cooperative ORIENTATION/CONSCIOUSNESS: Yes awake, Yes oriented to person, Yes oriented to place and Yes oriented to time Chest: COMMONS NORMALS: normal inspection of the chest and normal palpation of entire chest wall CHEST: Yes Symmetrical chest wall rise Resp: COMMON NORMALS: normal respiratory effort, No retractions, No use of accessory muscles and clear to auscultation bilaterally AUSCULTATION: clear to auscultation bilaterally Cardio: COMMON NORMALS: regular rate, regular rhythm, S1 normal heart sound present, S2 normal heart sound present, No gallops present (Cardio), No clicks present (Cardio), No murmurs present (Cardio) and No rub (Cardio) RATE: r egular rate RHYTHM: regular rhythm HEART SOUNDS: S1 normal heart sound present and S2 normal heart sound present PERIPHERAL PULSES: radial pulses present positive right 2+ and femoral pulses present positive right 2+ Neuro: COMMON NORMALS: patient oriented x3 and moves all extremities S ENSORIUM/ORIENTATION: Yes oriented to person, Yes oriented to place and Yes oriented to time Skin: WOUNDS: Yes surgical site (no hematoma palpable) Details: no odor Data 12/19/24 02:47 12/19/24 02:47 A&P Assessment and plan 1. Non-STEMI (non-ST elevated myocardial infarction): 2. Chest pain: 3. Coronary artery disease: 4. Unstable angina pectoris: Plan: 79 year old female presenting with chest pain, now s/p stent placement. CVA, unstable anginal chest pain. Non-STEMI (non-ST elevated myocardial infarction): - History of coronary artery bypass graft and a total of 16 stents to date - extensive impressive cardiovascular risk factors and disease - Patient had troponin elevation with no delta - D/C heparin drip after cath. - Cardiology following Dr. Murphy saw the patient today and Dr. Barkley performing cath - now s/p stent to left circumflex - cont DAPT with ASA/Plavix - chest pain currently minimal, cardiology increased her Imdur Hyperlipidemia: - Continue with statin HTN - cont. amlodipine, losartan, BB Chronic pain - fentanyl patch as OP. Hypokalemia - given 40 meq this AM. Diet: advance to HH/CC PPx: lovenox Disposition - cont. home medication regimen - discharge planning for the AM if no other issues. PDMP PDMP Reviewed: Last Reviewed 12/19/24 12:30 by Toan Melara MD Attestations 2 Medical Necessity Statement*: post PCI care. Time Spent in Patient Care: 16 - 35 minutes Coding Level of Care Code Acute Code for [facility] Diagnoses Non-STEMI (non-ST elevated myocardial infarction) I21.4 Chest pain R07.9 Coronary artery disease I25.10 Unstable angina pectoris I20.0
[2024-12-20] VITALS: BP 146/67; PULSE 73; RESP 21; TEMP 37; O2SAT 94
[2024-12-20 03:11] LABS: Hematocrit 33.9 % (36-47); Hemoglobin 10.90 g/dL (11.27-16.99); Mean Corpuscular HGB Conc 32.2 g/dL (30-55); Mean Corpuscular Hemoglobin 27.1 pg (27-33); Mean Corpuscular Volume 84.3 fl (85-98); Nucleated Red Blood Cells % 0 %; Platelet Count 188 10^3/cmm (157-399); Red Blood Count 4.02 10^6/uL (3.85-5.65); White Blood Count 6.47 10^3/uL (3.29-11.43)
[2024-12-20 03:31] LABS: Anion Gap 12.8 (5-19); Blood Urea Nitrogen 12 mg/dL (8-23); Calcium 7.5 mg/dL (8.5-10.5); Carbon Dioxide 30 mmol/L (22-29); Chloride 105 mmol/L (98-107); Creatinine Clr Calc Pharmacy 61.0782; Glucose 126 mg/dL (65-115); Osmolality Calculated 299 mOsm/kg (285-295); Potassium 3.8 mmol/L (3.5-5.1); Sodium 144 mmol/L (136-145)
[2024-12-20 04:00] VITALS: BP 145/71; PULSE 66; RESP 17; TEMP 36.7; O2SAT 95
[2024-12-20 07:18] VITALS: BP 164/56; PULSE 52; RESP 15; TEMP 36.6; O2SAT 96
[2024-12-20] MEDS: metoprolol succinate ER (24 HR) 50 mg Tablet 25 MG PO (08:48)
[2024-12-20 08:49] VITALS: BP 164/56
[2024-12-20] MEDS: calcium gluconate 0.9% NaCL 1 GM/50 ML PREMIX IV ×2 (08:49→09:16)
--- NOTE | 2024-12-20 09:00 | P.PN_ITS ---
<Statement entered by Joce Murphy MD - 12/20/24 19:18> Patient was evaluated and cared for in conjunction with an advanced practice practitioner. I personally saw the patient and reviewed the chart and all pertinent data. I discussed the patient in detail with the advanced practice practitioner. Please see their note for complete assessment and agreed upon plan of care for the patient. Subjective 2 Subjective: She has done well overnight, chest pain resolved with the increase in Imdur. Vitals/I&O/Wt Last Vital Signs Temp 97.8 F 12/20/24 07:18 Pulse 52 L 12/20/24 07:18 Resp 15 12/20/24 07:18 BP 164/56 12/20/24 08:49 Pulse Ox 96 12/20/24 07:18 O2 Del Method Room Air 12/20/24 04:00 O2 Flow Rate 2 12/18/24 12:00 12/19/24 12/20/24 12/20/24 22:59 06:59 14:59 Intake Total 480 / 1200 240 / 1200 935 / 935 Balance 480 / 1200 240 / 1200 935 / 935 Weight last 48 hrs Weight 163 lb 8 oz Weight 173 lb 9.6 oz Physical Exam 2 Const: COMMON NORMALS: no acute distress and patient oriented x3 GENERAL APPEARANCE: cooperative ORIENTATION/CONSCIOUSNESS: Yes awake, Yes oriented to person, Yes oriented to place and Yes oriented to time Chest: COMMONS NORMALS: normal inspection of the chest and normal palpation of entire chest wall CHEST: Yes Symmetrical chest wall rise Resp: COMMON NORMALS: normal respiratory effort, No retractions, No use of accessory muscles and clear to auscultation bilaterally AUSCULTATION: clear to auscultation bilaterally Cardio: COMMON NORMALS: regular rate, regular rhythm, S1 normal heart sound present, S2 normal heart sound present, No gallops present (Cardio), No clicks present (Cardio), No murmurs present (Cardio) and No rub (Cardio) RATE: r egular rate RHYTHM: regular rhythm HEART SOUNDS: S1 normal heart sound present and S2 normal heart sound present PERIPHERAL PULSES: radial pulses present positive right 2+ and femoral pulses present positive right 2+ Neuro: COMMON NORMALS: patient oriented x3 and moves all extremities S ENSORIUM/ORIENTATION: Yes oriented to person, Yes oriented to place and Yes oriented to time Skin: WOUNDS: Yes surgical site (no hematoma palpable) Details: no odor Data 12/20/24 02:44 12/20/24 02:44 A&P Assessment and plan 1. Coronary artery disease: 2. Hypertension: 3. Non-STEMI (non-ST elevated myocardial infarction): 4. Diabetes mellitus: Plan: She may discharge home today. Blood pressure controlled with losartan, metoprolol, Imdur. Continue aspirin and Plavix. Right femoral cath site looks good without oozing or hematoma. She has ambulated around the room without difficulty. Renal function is normal this morning 0.6 creatinine. Follow-up in the cardiology clinic in 7 to 10 days. PDMP PDMP Reviewed: Not Reviewed Attestations 2 Medical Necessity Statement*: Discharge home today Coding Level of Care Code Acute Code for [facility] Diagnoses Coronary artery disease I25.10 Hypertension I10 Non-STEMI (non-ST elevated myocardial infarction) I21.4 Diabetes mellitus E11.9
--- NOTE | 2024-12-20 11:58 | PM.DCS ---
Discharge Providers Date of Admission: 12/16/24 20:43 Date of Discharge: December 20, 2024 Attending Provider at Admission: Miguel Taylor MD Attending Provider at Discharge: Toan Melara MD Consults: Cardiology Primary Care Provider: Jose Ward MD Diagnoses at Discharge Discharge Diagnosis 1. Non-STEMI (non-ST elevated myocardial infarction): 2. Chest pain: 3. Coronary artery disease: 4. Unstable angina pectoris: Reason for Visit Reason for Visit: chest pain Brief History: 79 year old female presenting with chest pain, now s/p stent placement. Hospital Course Hospital Course CVA, unstable anginal chest pain. Non-STEMI (non-ST elevated myocardial infarction): - History of coronary artery bypass graft and a total of 16 stents to date - extensive impressive cardiovascular risk factors and disease - Patient had troponin elevation with no delta - Cardiology following Dr. Murphy saw the patient today and Dr. Barkley performing cath - now s/p stent to left circumflex - cont DAPT with ASA/Plavix - chest pain resolved this AM - cont. on increased Imdur after discharge. Hyperlipidemia: - Continue with statin HTN - cont. amlodipine, losartan, BB Chronic pain - fentanyl patch as OP. Hypokalemia - given 40 meq this AM. Diet: advance to HH/CC PPx: lovenox Disposition - cont. home medication regimen - discharge planning for the AM if no other issues. Physical Exam Const: COMMON NORMALS: no acute distress and patient oriented x3 GENERAL APPEARANCE: cooperative ORIENTATION/CONSCIOUSNESS: Yes awake, Yes oriented to person, Yes oriented to place and Yes oriented to time Chest: COMMONS NORMALS: normal inspection of the chest and normal palpation of entire chest wall CHEST: Yes Symmetrical chest wall rise Resp: COMMON NORMALS: normal respiratory effort, No retractions, No use of accessory muscles and clear to auscultation bilaterally AUSCULTATION: clear to auscultation bilaterally Cardio: COMMON NORMALS: regular rate, regular rhythm, S1 normal heart sound present, S2 normal heart sound present, No gallops present (Cardio), No clicks present (Cardio), No murmurs present (Cardio) and No rub (Cardio) RATE: regular rate RHYTHM: regular rhythm HEART SOUNDS: S1 normal heart sound present and S2 normal heart sound present PERIPHERAL PULSES: radial pulses present positive right 2+ and femoral pulses present positive right 2+ Neuro: COMMON NORMALS: patient oriented x3 and moves all extremities SENSORIUM/ORIENTATION: Yes oriented to person, Yes oriented to place and Yes oriented to time Skin: WOUNDS: Yes surgical site (no hematoma palpable) Details: no odor Discharge Data Studies Completed and Pending Completed Studies During Hospitalization Category Date Time Status XR chest 1V portable [id number] Stat Exams 12/16/24 18:34 Completed CV. 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 Laboratory Results WBC 6.47 10^3/uL (3.29-11.43) 12/20/24 02:44 RBC 4.02 10^6/uL (3.85-5.65) 12/20/24 02:44 Hgb 10.90 g/dL (11.27-16.99) L 12/20/24 02:44 Hct 33.9 % (36-47) L 12/20/24 02:44 MCV 84.3 fl (85-98) L 12/20/24 02:44 MCH 27.1 pg (27-33) 12/20/24 02:44 MCHC 32.2 g/dL (30-55) 12/20/24 02:44 RDW 13.6 % (12.1-15.1) 12/20/24 02:44 Plt Count 188 10^3/cmm (157-399) 12/20/24 02:44 MPV 9.7 fL (7.4-10.4) 12/20/24 02:44 Neut % (Auto) 52.2 % 12/20/24 02:44 Lymph % (Auto) 33.4 % 12/20/24 02:44 [place] % (Auto) 11.4 % 12/20/24 02:44 Eos % (Auto) 2.2 % 12/20/24 02:44 Baso % (Auto) 0.5 % 12/20/24 02:44 Neut # (Auto) 3.38 10^3/uL (1.8-7.7) 12/20/24 02:44 Lymph # (Auto) 2.2 10^3/uL (0.8-4.8) 12/20/24 02:44 [place] # (Auto) 0.7 10^3/uL (0.2-0.9) 12/20/24 02:44 Eos # (Auto) 0.1 10^3/uL (0.0-0.8) 12/20/24 02:44 Baso # (Auto) 0.0 10^3/uL (0.0-0.1) 12/20/24 02:44 Nucleated RBC % (auto) 0 % 12/20/24 02:44 Nucleated RBCs # 0.0 /100WBC 12/20/24 02:44 APTT 48.1 SECONDS (23.9-36.7) H 12/18/24 07:40 D-Dimer 0.42 ug/mLFEU (0-0.59) 12/16/24 19:00 Sodium 144 mmol/L (136-145) 12/20/24 02:44 Potassium 3.8 mmol/L (3.5-5.1) 12/20/24 02:44 Chloride 105 mmol/L (98-107) 12/20/24 02:44 Carbon Dioxide 30 mmol/L (22-29) H 12/20/24 02:44 Anion Gap 12.8 (5-19) 12/20/24 02:44 BUN 12 mg/dL (8-23) 12/20/24 02:44 Creatinine 0.6 mg/dL (0.5-0.9) 12/20/24 02:44 GFR Calculation Not Reportable 12/20/24 02:44 Glucose 126 mg/dL (65-115) H 12/20/24 02:44 POC Glucose 173 mg/dL (70-110) H 12/20/24 11:11 Estimat Average Glucose 212 12/17/24 00:45 Hemoglobin A1c 9.0 % (4.0-6.0) H 12/17/24 00:45 Calculated Osmolality 299 mOsm/kg (285-295) H 12/20/24 02:44 Calcium 7.5 mg/dL (8.5-10.5) L 12/20/24 02:44 Magnesium 1.7 mg/dL (1.7-2.3) 12/17/24 00:45 Total Bilirubin 0.3 mg/dL (0.15-1.2) 12/17/24 00:45 AST 16 U/L (0-32) 12/17/24 00:45 ALT 12 U/L (0-33) 12/17/24 00:45 Alkaline Phosphatase 64 U/L (35-105) 12/17/24 00:45 Troponin T Baseline 11 ng/L (0-10) H 12/16/24 19:00 Troponin T 120 Minute 11.60 ng/L (0-10) H 12/16/24 20:55 Delta Troponin T 0.60 ABS# (0-10) 12/16/24 20:55 Troponin T Hi Sens 6Hr 12.33 ng/L (0-10) H 12/17/24 00:45 Troponin T Hi Sens 6Hr Delta 1.33 ng/L (0-12) 12/17/24 00:45 NT-Pro-B Natriuret Pep 261 pg/mL (0-450) 12/16/24 19:00 Total Protein 6.2 g/dL (6.6-8.7) L 12/17/24 00:45 Albumin 3.5 g/dL (3.5-5.2) 12/17/24 00:45 Globulin 2.7 g/dL (1.3-4.6) 12/17/24 00:45 Triglycerides 137 mg/dL (0-150) 12/17/24 00:45 Cholesterol 218 mg/dL (0-200) H 12/17/24 00:45 LDL Cholesterol, Calc 146 mg/dL (50-129) H 12/17/24 00:45 HDL Cholesterol 45 mg/dL (60-100) L 12/17/24 00:45 LDL/HDL Ratio 3.24 RATIO (0.00-3.22) H 12/17/24 00:45 Cholesterol/HDL Ratio 4.84 mg/dL (0.0-4.40) H 12/17/24 00:45 Vitals Last Vital Signs Temp 97.8 F 12/20/24 07:18 Pulse 52 L 12/20/24 07:18 Resp 15 12/20/24 07:18 BP 164/56 12/20/24 08:49 Pulse Ox 96 12/20/24 07:18 O2 Del Method Room Air 12/20/24 04:00 O2 Flow Rate 2 12/18/24 12:00 Discharge Plan Discharge Patient Disposition: Home Condition: Stable Prescriptions: New clopidogrel 75 mg Tablet 75 mg PO DAILY Qty: 30 2RF aspirin 81 mg Tablet,Delayed Release (Dr/Ec) 81 mg PO DAILY Qty: 30 2RF atorvastatin 40 mg Tablet 40 mg PO BEDTIME Qty: 30 2RF isosorbide mononitrate 60 mg Tablet Extended Release 24 Hr 60 mg PO DAILY Qty: 30 2RF Continued trazodone 50 mg tablet 150 mg PO BEDTIME furosemide 40 mg tablet 40 mg PO DAILY metoprolol succinate 50 mg tablet extended release 24 hr 25 mg PO DAILY amlodipine 5 mg tablet 5 mg PO DAILY estradiol 1 mg tablet 1 mg PO DAILY losartan 100 mg tablet 100 mg PO DAILY aripiprazole 5 mg tablet 5 mg PO DAILY pregabalin 225 mg capsule 225 mg PO BID mirabegron [Myrbetriq] 25 mg tablet extended release 24 hr 25 mg PO DAILY Trintellix 20 mg Tablet 20 mg PO DAILY insulin degludec [Tresiba FlexTouch U-200] 200 unit/mL (3 mL) insulin pen 74 unit SUBCUT QAM fentanyl 25 mcg/hr patch 72 hour 25 mcg transdermal Q3D Discontinued isosorbide mononitrate 30 mg tablet extended release 24 hr 30 mg PO DAILY Discharge Order = DC NOW: Discharge Order (Routine); Ordered 12/20/24 Ordered By: Toan Melara Referrals: Jose Ward MD [Primary Care Provider, Internal Medicine] - 12/21/24 2:20 pm Zuleima Ramos FNP [Nurse Practitioner, Cardiology] - 12/25/24 2:00 pm Discharge Diet: Usual diet Discharge Activity: Resume usual activity Patient Instructions: Coronary Angioplasty (DC), Chest Pain Stoplight, Opioid Safety, Post Angiogram Home Care Instructions, Patient Portal & Anne Instructions Discharge Attestations Time Spent in Discharge Care*: greater than 30 min Quality Metrics Clinical Quality Measures [ No reported AMI, CVA or VTE this stay] Coding Level of Care Code Acute Code for [facility] Fwd Diagnoses Non-STEMI (non-ST elevated myocardial infarction) I21.4 Chest pain R07.9 Coronary artery disease I25.10 Unstable angina pectoris I20.0
--- NOTE | 2024-12-20 14:51 | PC.NURSE ---
discharge delayed due to transportation issues. Patient discharged to home. Instruction provided regarding follow up needs, new medications with changes and post cath site care. Patient verbalized complete understanding. Groin dressing remains c,d,i without s/s of bleeding or hematoma observed. Patient denies any pain or needs. No distress observed. Patient taken by wheelchair to private vehicle.
== END 2024-12-20 14:14 | disposition home or self-care (01) ==
LOC: ER 20:42 → CSU 21:48
PROVIDERS: Internal Medicine; Nurse Practitioner Family; Student in an Organized Health Care Education/Training Program; Admitting Provider Student in an Organized Health Care Education/Training Program; Emergency Provider Emergency Medicine; PCP Internal Medicine; Visit Provider Internal Medicine
DX: I21.4 Non-ST elevation (NSTEMI) myocardial infarction (principal); I25.10 Atherosclerotic heart disease of native coronary artery without angina pectoris; Z79.4 Long term (current) use of insulin; E11.9 Type 2 diabetes mellitus without complications; I10 Essential (primary) hypertension; Z95.1 Presence of aortocoronary bypass graft; E78.5 Hyperlipidemia, unspecified
CPT/HCPCS: 36415; 36416; 71045; 80048; 80053; 80061; 82962; 83036; 83735; 83880; 84484; 85025; 85347; 85378; 85730; 93005; 93306; 93455; 96365; 96372; 96375; 96376; 99152; 99153; 99285; C1725; C1760; C1769; C1874; C1887; C1894; C9600; G0269; G0378; J0612; J1644; J1650; J1815; J2250; J2270; J2405; J2765; J3010; J7030; J9999; Q0163; Q9967